=== PATIENT | female | born 1945 | race Caucasian/White ===

== ENCOUNTER 2018-04-20 18:27 | Inpatient (IN) | payer MEDICARE, MEDICAID ==
[~2018-04-20] VITALS: Ht 167.6 cm; Wt 58.2 kg
[~2018-04-20 18:27] MED LIST: ALEN70TA48 PO; ESCI10TA54 PO; HYDR25TA4 PO; PHEN100C4 PO; QUET-1 PO; RAMI5CAP PO; RISP3TAB11 PO; ZOLP10TA5 PO
[2018-04-20 19:35] LABS: BASOPHILS % (AUTO) 0.7 % (0-1); EOSINOPHILS # (AUTO) 0.1 X10'3 (0-0.9); EOSINOPHILS % (AUTO) 1.4 % (0-6); HEMATOCRIT 38.6 % (35.0-45.0); HEMOGLOBIN 13.1 g/dl (12.0-16.0); LYMPHOCYTES # (AUTO) 1.4 X10'3 (1.1-4.8); LYMPHOCYTES % (AUTO) 29.3 % (21-51); MEAN CORPUSCULAR HEMOGLOBIN 32.6 PG (27.0-31.0); MEAN CORPUSCULAR HGB CONC 33.9 % (33.0-36.5); MEAN PLATELET VOLUME 7.4 FL (7.4-10.4); MONOCYTES # (AUTO) 0.4 X10'3 (0-0.9); MONOCYTES % (AUTO) 7.4 % (2-12); NEUTROPHILS % (AUTO) 61.2 % (42-75); PLATELET COUNT 245 X10'3 (140-440); RED BLOOD COUNT 4.02 X10'6 (4.20-5.60); WHITE BLOOD COUNT 4.9 X10'3 (4.5-11.0)
[2018-04-20 19:39] LABS: CLARITY,URINE CLEAR (Clear); COLOR,URINE STRAW (Yellow); GLUCOSE, URINE NEGATIVE (Neg); KETONES,URINE NEGATIVE (Neg); LEUKOCYTE ESTERASE ,URINE NEGATIVE (Neg); NITRITES, URINE NEGATIVE (Neg); OCCULT BLOOD,URINE NEGATIVE (Neg); PH,URINE 6.5 (4.8-8.0); PROTEIN,URINE NEGATIVE (Neg); UROBILINOGEN,URINE 0.2 E.U/dL (0.2-1.0)
[2018-04-20 19:40] LABS: UA COLLECTION TYPE VOIDED
[2018-04-20 19:44] LABS: URINE AMPHETAMINE SCREEN NEGATIVE (Neg); URINE BARBITUATE SCREEN NEGATIVE (Neg); URINE BENZODIAZEPINES SCREEN NEGATIVE (Neg); URINE CANNABINOID SCREEN NEGATIVE (Neg); URINE COCAINE SCREEN NEGATIVE (Neg); URINE METHADONE SCREEN NEGATIVE (Neg); URINE OPIATE SCREEN NEGATIVE (Neg); URINE PHENCYCLIDINE SCREEN NEGATIVE (Neg)
[2018-04-20 19:49] LABS: ALANINE AMINOTRANSFERASE 43 U/L (12-78); ALBUMIN 3.6 G/DL (3.4-5.0); ALKALINE PHOSPHATASE 102 IU/L (46-116); ANION GAP 6 (8-16); ASPARTATE AMINO TRANSFERASE 24 U/L (10-37); BILIRUBIN,TOTAL 0.1 MG/DL (0.1-1.0); BLOOD UREA NITROGEN 16 MG/DL (7-18); BUN/CREATININE RATIO 19.3 (6.6-38.0); CALCIUM 8.8 MG/DL (8.5-10.1); CHLORIDE 106 MMOL/L (99-107); CREATININE 0.83 MG/DL (0.40-0.90); GLUCOSE 77 MG/DL (70-104); SODIUM 141 MMOL/L (135-145); TOTAL CARBON DIOXIDE 28.6 MMOL/L (24-32); TOTAL PROTEIN 7.1 G/DL (6.4-8.2); eGFR 67 ML/MIN
[2018-04-20 20:00] LABS: ETHANOL < 0.010 GM/DL (0.0-0.010); PHENYTOIN (DILANTIN) 15.9 UG/ML (10.0-20.0)
[2018-04-20 20:09] LABS: ACETAMINOPHEN < 2.0 UG/ML (10-30)
[2018-04-21] VITALS (17 sets, daily range): BP systolic 131–171; BP diastolic 47–79
[2018-04-21] MEDS: sodium bicarbonate (8.4%) inj. 150 MEQ in dextrose 5%-water 1,000 ML IV SCH ×2 (02:40→13:21)
[2018-04-21] MEDS ORDERED: sodium bicarbonate (8.4%) 1 mEq/ml syringe IV ONE (05:20)
[2018-04-21] MEDS: magnesium 1gm/100ml D5W IVPB 100 ML IV SCH ×2 (05:34→07:21)
[2018-04-21 05:51] LABS: BASOPHILS # (AUTO) 0.1 X10'3 (0-0.2); BASOPHILS % (AUTO) 2.4 % (0-1); EOSINOPHILS # (AUTO) 0.1 X10'3 (0-0.9); EOSINOPHILS % (AUTO) 2.3 % (0-6); HEMATOCRIT 37.9 % (35.0-45.0); HEMOGLOBIN 12.7 g/dl (12.0-16.0); LYMPHOCYTES # (AUTO) 1.3 X10'3 (1.1-4.8); LYMPHOCYTES % (AUTO) 28.8 % (21-51); MEAN CORPUSCULAR HEMOGLOBIN 32.1 PG (27.0-31.0); MEAN CORPUSCULAR HGB CONC 33.6 % (33.0-36.5); MEAN CORPUSCULAR VOLUME 95.6 FL (78-98); MEAN PLATELET VOLUME 7.5 FL (7.4-10.4); MONOCYTES # (AUTO) 0.4 X10'3 (0-0.9); MONOCYTES % (AUTO) 8.8 % (2-12); NEUTROPHILS # (AUTO) 2.6 X10'3 (1.8-7.7); NEUTROPHILS % (AUTO) 57.7 % (42-75); PLATELET COUNT 230 X10'3 (140-440); RED BLOOD COUNT 3.96 X10'6 (4.20-5.60); RED CELL DISTRIBUTION WIDTH 13.4 % (11.5-14.5); WHITE BLOOD COUNT 4.6 X10'3 (4.5-11.0)
[2018-04-21] MEDS: K, MAG and/or Phos replacement - Verify level? MC SCH ×2 (05:55→08:00)
[2018-04-21] MEDS ORDERED: morphine 4 MG/ML inj SYRINge IV PRN ×2 (05:55)
[2018-04-21] MEDS ORDERED: potassium Cl 20 mEq SR tablet PO PRN ×2 (05:55)
[2018-04-21] MEDS ORDERED: magnesium 1gm/100ml D5W IVPB 100 ML IV PRN (05:55)
[2018-04-21] MEDS ORDERED: magnesium 4gm in 100ml NS 100 ML IV PRN (05:55)
[2018-04-21] MEDS ORDERED: sodium bicarbonate inj. 133.8 MEQ in dextrose 5%-water 1,001.3333 ML IV SCH (05:55)
[2018-04-21] MEDS ORDERED: magnesium hydroxide 30ml (MOM) UD suspension PO PRN (05:55)
[2018-04-21] MEDS ORDERED: potassium Cl 40MEQ/NS 500ml 500 ML IV PRN ×2 (05:55)
[2018-04-21] MEDS ORDERED: acetaminophen 325mg tablet PO PRN ×2 (05:55)
[2018-04-21] MEDS ORDERED: magnesium Cl slow-release 64mg tablet PO PRN (05:55)
[2018-04-21 06:08] LABS: ALANINE AMINOTRANSFERASE 42 U/L (12-78); ALBUMIN 3.3 G/DL (3.4-5.0); ALKALINE PHOSPHATASE 89 IU/L (46-116); ANION GAP 9 (8-16); ASPARTATE AMINO TRANSFERASE 26 U/L (10-37); BILIRUBIN,TOTAL 0.1 MG/DL (0.1-1.0); BLOOD UREA NITROGEN 17 MG/DL (7-18); BUN/CREATININE RATIO 17.5 (6.6-38.0); CALCIUM 8.9 MG/DL (8.5-10.1); CHLORIDE 106 MMOL/L (99-107); CREATININE 0.97 MG/DL (0.40-0.90); GLUCOSE 133 MG/DL (70-104); POTASSIUM 3.6 MMOL/L (3.5-5.1); SODIUM 142 MMOL/L (135-145); TOTAL CARBON DIOXIDE 27.3 MMOL/L (24-32); TOTAL PROTEIN 6.7 G/DL (6.4-8.2); eGFR 56 ML/MIN
[2018-04-21] MEDS ORDERED: non-formulary drug (Alendronate Sodium* (Fosamax*) 1 TABLET) PO SCH (10:05)
[2018-04-21] MEDS ORDERED: non-formulary drug (Zolpidem Tartrate* (Ambien*) 1 TABLET) PO PRN (10:05)
[2018-04-21] MEDS ORDERED: zolpidem 5mg tablet PO PRN (10:10)
[2018-04-21] MEDS ORDERED: Potassium Cl inj 40 MEQ in normal saline 500ml IV soln 480 ML IV ONE (10:20)
[2018-04-21] MEDS ORDERED: pneumococcal 23-VAL P-sac vacc 25 mcg/0.5ml vial IMVAC ONE (16:25)
[2018-04-21] MEDS: phenytoin sod ER 100mg capsule PO SCH (19:56)
[2018-04-21] MEDS ORDERED: lisinopril 20mg tablet PO SCH (20:00)
[2018-04-21] MEDS ORDERED: RISPERIDONE PO SCH (21:00)
[2018-04-21] MEDS ORDERED: risperiDONE 0.5mg tablet PO SCH (21:00)
[2018-04-22] VITALS (14 sets, daily range): BP systolic 112–142; BP diastolic 51–75
[2018-04-22] MEDS: sodium bicarbonate (8.4%) inj. 150 MEQ in dextrose 5%-water 1,000 ML IV SCH ×2 (00:51→12:21)
[2018-04-22 06:01] LABS: BASOPHILS % (AUTO) 0.8 % (0-1); EOSINOPHILS # (AUTO) 0.1 X10'3 (0-0.9); EOSINOPHILS % (AUTO) 2.3 % (0-6); HEMOGLOBIN 12.3 g/dl (12.0-16.0); LYMPHOCYTES # (AUTO) 1.4 X10'3 (1.1-4.8); LYMPHOCYTES % (AUTO) 28.1 % (21-51); MEAN CORPUSCULAR HEMOGLOBIN 31.8 PG (27.0-31.0); MEAN CORPUSCULAR HGB CONC 33.4 % (33.0-36.5); MEAN CORPUSCULAR VOLUME 95.3 FL (78-98); MEAN PLATELET VOLUME 7.8 FL (7.4-10.4); MONOCYTES # (AUTO) 0.3 X10'3 (0-0.9); MONOCYTES % (AUTO) 7.1 % (2-12); NEUTROPHILS % (AUTO) 61.7 % (42-75); PLATELET COUNT 204 X10'3 (140-440); RED BLOOD COUNT 3.88 X10'6 (4.20-5.60); WHITE BLOOD COUNT 4.8 X10'3 (4.5-11.0)
[2018-04-22 06:20] LABS: ALANINE AMINOTRANSFERASE 32 U/L (12-78); ALKALINE PHOSPHATASE 88 IU/L (46-116); ANION GAP 5 (8-16); ASPARTATE AMINO TRANSFERASE 19 U/L (10-37); BILIRUBIN,TOTAL 0.3 MG/DL (0.1-1.0); BLOOD UREA NITROGEN 11 MG/DL (7-18); BUN/CREATININE RATIO 16.2 (6.6-38.0); CALCIUM 8.2 MG/DL (8.5-10.1); CHLORIDE 109 MMOL/L (99-107); CREATININE 0.68 MG/DL (0.40-0.90); GLUCOSE 99 MG/DL (70-104); PHOSPHORUS 3.3 MG/DL (2.3-4.5); SODIUM 142 MMOL/L (135-145); TOTAL CARBON DIOXIDE 27.6 MMOL/L (24-32); TOTAL PROTEIN 6.1 G/DL (6.4-8.2); eGFR 84 ML/MIN
[2018-04-22] MEDS ORDERED: lisinopril 20mg tablet PO SCH (08:00)
[2018-04-22] MEDS: K, MAG and/or Phos replacement - Verify level? MC SCH (08:00)
[2018-04-22] MEDS ORDERED: RAMIPRIL PO SCH (08:00)
[2018-04-22] MEDS: phenytoin sod ER 100mg capsule PO SCH (08:19)
[2018-04-23] MEDS ORDERED: PHEN100C12 PO (11:58)
[2018-04-23] MEDS ORDERED: PHEN100C4 PO (18:04)
== END 2018-04-22 14:49 | DRG 918 ==
LOC: ER 18:28 → ED HOLD 04-21 05:54 → ICU 2S 04-21 07:24
PROVIDERS: ADMIT Internal Medicine Critical Care Medicine; ATTEND Internal Medicine Critical Care Medicine
DX: T45.0X2A Poisoning by antiallergic and antiemetic drugs, intentional self-harm, initial encounter (principal); F20.9 Schizophrenia, unspecified; I45.81 Long QT syndrome; I10 Essential (primary) hypertension; F32.9 Major depressive disorder, single episode, unspecified; K21.9 Gastro-esophageal reflux disease without esophagitis; R56.9 Unspecified convulsions; Z79.83 Long term (current) use of bisphosphonates; Z79.899 Other long term (current) drug therapy; Y92.89 Other specified places as the place of occurrence of the external cause
CPT/HCPCS: 36415; 80053; 80185; 80305; 80320; 80329; 81003; 83735; 84100; 84443; 85025; 87070; 93005; 96365; 99285; A6449; J3480; J7030

== ENCOUNTER 2018-04-22 13:39 | Inpatient (IN) | payer MEDICARE, MEDICAID ==
[~2018-04-22] VITALS: Ht 167.6 cm; Wt 58.9 kg
[~2018-04-22 13:39] MED LIST changes: -ESCI10TA54 PO; -HYDR25TA4 PO
[2018-04-22 14:50] VITALS: BP 147/77
[2018-04-22] MEDS ORDERED: acetaminophen 325mg tablet PO PRN ×2 (16:00)
[2018-04-22] MEDS ORDERED: mag hydrox/Alum hydrox/simeth 30ml oral suspension PO PRN (16:00)
[2018-04-22] MEDS ORDERED: magnesium hydroxide 30ml (MOM) UD suspension PO PRN (16:00)
[2018-04-22 16:38] LABS: CHOL/HDL RATIO 2.1 (0.00-4.99); CHOLESTEROL 214 MG/DL (0-200); HDL CHOLESTEROL 103 MG/DL (35-60); LDL CHOLESTEROL 89 MG/DL (50-100); TRIGLYCERIDES 72 MG/DL (20-135)
[2018-04-22 19:42] VITALS: BP 122/71
[2018-04-22] MEDS: lisinopril 20mg tablet PO SCH (20:38)
[2018-04-22] MEDS: zolpidem 5mg tablet PO PRN (20:39)
[2018-04-22] MEDS: QUETIAPINE 150 MG TAB.SR.24H PO SCH (20:39)
[2018-04-23 08:00] VITALS: BP 113/49
[2018-04-23] MEDS ORDERED: lisinopril 20mg tablet PO SCH (08:00)
[2018-04-23] MEDS: [UNRECOGNIZED DRUG - REMARK] PO NR (10:00)
[2018-04-23] MEDS ORDERED: PHEN100C12 PO (11:58)
[2018-04-23] MEDS ORDERED: PHEN100C4 PO (18:04)
[2018-04-23 20:04] VITALS: BP 120/69
[2018-04-23] MEDS: QUETIAPINE 150 MG TAB.SR.24H PO SCH (20:56)
[2018-04-23] MEDS: lisinopril 20mg tablet PO SCH (20:56)
[2018-04-23] MEDS: zolpidem 5mg tablet PO PRN (20:56)
[2018-04-23] MEDS: phenytoin sod ER 100mg capsule PO SCH (21:02)
[2018-04-24] MEDS: phenytoin sod ER 100mg capsule PO SCH ×3 (07:53→21:00)
[2018-04-24 08:00] VITALS: BP 118/63
[2018-04-24] MEDS: [UNRECOGNIZED DRUG - REMARK] PO NR (10:35)
[2018-04-24 19:00] VITALS: BP 119/64
[2018-04-24] MEDS: lisinopril 20mg tablet PO SCH (21:00)
[2018-04-24] MEDS: QUETIAPINE 150 MG TAB.SR.24H PO SCH (21:00)
[2018-04-24] MEDS: zolpidem 5mg tablet PO PRN (21:05)
[2018-04-25 08:00] VITALS: BP 143/69
[2018-04-25] MEDS: phenytoin sod ER 100mg capsule PO SCH ×3 (08:26→20:47)
[2018-04-25] MEDS: [UNRECOGNIZED DRUG - REMARK] PO NR (10:00)
[2018-04-25 19:00] VITALS: BP 144/72
[2018-04-25] MEDS: QUETIAPINE 200 MG TAB.SR.24H PO SCH (20:47)
[2018-04-25] MEDS: zolpidem 5mg tablet PO PRN (20:48)
[2018-04-25] MEDS: lisinopril 20mg tablet PO SCH (20:48)
[2018-04-26 08:00] VITALS: BP 151/74
[2018-04-26] MEDS: phenytoin sod ER 100mg capsule PO SCH ×3 (08:14→21:07)
[2018-04-26] MEDS: [UNRECOGNIZED DRUG - REMARK] PO NR (10:25)
[2018-04-26] MEDS ORDERED: QUET400T54 PO (12:25)
[2018-04-26] MEDS ORDERED: PHEN100C12 PO (12:25)
[2018-04-26] MEDS ORDERED: ZOLP10TA PO (12:25)
[2018-04-26] MEDS ORDERED: ALEN70TA48 PO (12:25)
[2018-04-26] MEDS ORDERED: LISI-600 PO (12:25)
[2018-04-26 19:00] VITALS: BP 134/69
[2018-04-26] MEDS: QUETIAPINE 200 MG TAB.SR.24H PO SCH (21:07)
[2018-04-26] MEDS: lisinopril 20mg tablet PO SCH (21:08)
[2018-04-26] MEDS: zolpidem 5mg tablet PO PRN (21:08)
[2018-04-27 07:57] VITALS: BP 122/69
[2018-04-27] MEDS: phenytoin sod ER 100mg capsule PO SCH ×2 (08:33→13:21)
[2018-04-27] MEDS: [UNRECOGNIZED DRUG - REMARK] PO NR (10:00)
== END 2018-04-27 14:37 | disposition home or self-care (01) | DRG 885 ==
LOC: ADULT MH 13:39
PROVIDERS: ADMIT Psychiatry & Neurology Psychiatry; ATTEND Psychiatry & Neurology Psychiatry
DX: F20.0 Paranoid schizophrenia (principal); R45.851 Suicidal ideations; I10 Essential (primary) hypertension; E78.5 Hyperlipidemia, unspecified; E78.00 Pure hypercholesterolemia, unspecified; F10.21 Alcohol dependence, in remission; F32.9 Major depressive disorder, single episode, unspecified; G40.909 Epilepsy, unspecified, not intractable, without status epilepticus; I45.81 Long QT syndrome; T45.0X2D Poisoning by antiallergic and antiemetic drugs, intentional self-harm, subsequent encounter; Z79.83 Long term (current) use of bisphosphonates; Z79.899 Other long term (current) drug therapy; Z87.891 Personal history of nicotine dependence; Z82.5 Family history of asthma and other chronic lower respiratory diseases; Y92.89 Other specified places as the place of occurrence of the external cause
CPT/HCPCS: 36415; 80061; 83036; 87070

== ENCOUNTER 2018-06-18 11:47 | Inpatient (IN) | payer MEDICARE, MEDICAID ==
[~2018-06-18] VITALS: Ht 167.6 cm; Wt 54.0 kg
[~2018-06-18 11:47] MED LIST changes: +LISI-600 PO; +PHEN100C12 PO; -PHEN100C4 PO; -QUET-1 PO; +QUET400T54 PO; -RAMI5CAP PO; -RISP3TAB11 PO; +ZOLP10TA PO; -ZOLP10TA5 PO
[2018-06-18] MEDS ORDERED: ondansetron 4mg rapidly disintigrating tab PO ONE (11:55)
[2018-06-18 12:17] LABS: CLARITY,URINE CLEAR (Clear); COLOR,URINE YELLOW (Yellow); GLUCOSE, URINE NEGATIVE (Neg); KETONES,URINE TRACE mg/dl (Neg); LEUKOCYTE ESTERASE ,URINE NEGATIVE (Neg); NITRITES, URINE NEGATIVE (Neg); OCCULT BLOOD,URINE TRACE-LYSED (Neg); PROTEIN,URINE NEGATIVE (Neg); UROBILINOGEN,URINE 0.2 E.U/dL (0.2-1.0)
[2018-06-18 12:18] LABS: EOSINOPHILS # (AUTO) 0.1 X10'3 (0-0.9); EOSINOPHILS % (AUTO) 1.1 % (0-6); HEMATOCRIT 37.1 % (35.0-45.0); HEMOGLOBIN 12.7 g/dl (12.0-16.0); LYMPHOCYTES # (AUTO) 0.8 X10'3 (1.1-4.8); LYMPHOCYTES % (AUTO) 17.3 % (21-51); MEAN CORPUSCULAR HGB CONC 34.2 % (33.0-36.5); MEAN CORPUSCULAR VOLUME 93.6 FL (78-98); MEAN PLATELET VOLUME 7.5 FL (7.4-10.4); MONOCYTES # (AUTO) 0.2 X10'3 (0-0.9); MONOCYTES % (AUTO) 4.7 % (2-12); NEUTROPHILS # (AUTO) 3.3 X10'3 (1.8-7.7); NEUTROPHILS % (AUTO) 75.9 % (42-75); PLATELET COUNT 246 X10'3 (140-440); RED BLOOD COUNT 3.96 X10'6 (4.20-5.60); RED CELL DISTRIBUTION WIDTH 13.6 % (11.5-14.5); WHITE BLOOD COUNT 4.4 X10'3 (4.5-11.0)
[2018-06-18] MEDS ORDERED: POLY17PO10 PO (12:20)
[2018-06-18] MEDS ORDERED: ondansetron/PF 4mg/2ml inj IV ONE (12:25)
[2018-06-18] MEDS ORDERED: normal saline 1000ML IV soln IVB ONE (12:25)
[2018-06-18 12:30] LABS: ALANINE AMINOTRANSFERASE 34 U/L (12-78); ALBUMIN 3.6 G/DL (3.4-5.0); ALKALINE PHOSPHATASE 81 IU/L (46-116); ANION GAP 12 (8-16); ASPARTATE AMINO TRANSFERASE 23 U/L (10-37); BILIRUBIN,TOTAL 0.3 MG/DL (0.1-1.0); BLOOD UREA NITROGEN 20 MG/DL (7-18); CALCIUM 8.9 MG/DL (8.5-10.1); CHLORIDE 106 MMOL/L (99-107); CREATININE 0.91 MG/DL (0.40-0.90); GLUCOSE 87 MG/DL (70-104); POTASSIUM 3.7 MMOL/L (3.5-5.1); SODIUM 142 MMOL/L (135-145); TOTAL CARBON DIOXIDE 24.2 MMOL/L (24-32); TOTAL PROTEIN 7.2 G/DL (6.4-8.2); eGFR 60 ML/MIN
[2018-06-18 12:38] LABS: UA COLLECTION TYPE CLN CATCH MIDSTREAM
[2018-06-18 12:48] LABS: WBC,URINE 0-4 /HPF (0-4)
[2018-06-18 12:49] LABS: BACTERIA,URINE FEW /HPF (Neg); MUCUS STRANDS MODERATE /LPF (Neg); RBC,URINE 0-2 /HPF (0-2); SQUAMOUS EPITHELIAL CELL,UR MODERATE /LPF (FEW)
[2018-06-18] MEDS ORDERED: potassium Cl 40MEQ/NS 500ml 500 ML IV PRN ×2 (14:30)
[2018-06-18] MEDS ORDERED: magnesium Cl slow-release 64mg tablet PO PRN (14:30)
[2018-06-18] MEDS ORDERED: HYDROcodone/acetaminophen 10/325mg tab PO PRN (14:30)
[2018-06-18] MEDS ORDERED: HYDROcodone/acetaminophen 5mg/325mg tablet PO PRN (14:30)
[2018-06-18] MEDS ORDERED: acetaminophen 325mg tablet PO PRN ×2 (14:30)
[2018-06-18] MEDS ORDERED: acetaminophen 650mg rectal suppository RC PRN (14:30)
[2018-06-18] MEDS ORDERED: ondansetron/PF 4mg/2ml inj IV PRN (14:30)
[2018-06-18] MEDS ORDERED: mag hydrox/Alum hydrox/simeth 30ml oral suspension PO PRN (14:30)
[2018-06-18] MEDS ORDERED: bisacodyl 10mg suppository rectal RC PRN (14:30)
[2018-06-18] MEDS ORDERED: diphenhydrAMINE 25mg capsule PO PRN (14:30)
[2018-06-18] MEDS ORDERED: non-formulary drug (Alendronate Sodium* (Fosamax*) 1 TABLET) PO SCH (14:30)
[2018-06-18] MEDS ORDERED: magnesium 4gm in 100ml NS 100 ML IV PRN (14:30)
[2018-06-18] MEDS ORDERED: potassium Cl 20 mEq SR tablet PO PRN ×2 (14:30)
[2018-06-18] MEDS ORDERED: diphenhydrAMINE 50 mg/ml inj IV PRN (14:30)
[2018-06-18] MEDS ORDERED: magnesium hydroxide 30ml (MOM) UD suspension PO PRN (14:30)
[2018-06-18] MEDS ORDERED: magnesium 1gm/100ml D5W IVPB 100 ML IV PRN (14:30)
[2018-06-18] MEDS ORDERED: morphine 2 MG/ML inj. syringe IV PRN ×2 (14:30)
[2018-06-18] MEDS: K and/or MAG REPLACEMENT MC SCH (15:20)
[2018-06-18 15:57] LABS: PHENYTOIN (DILANTIN) 0.5 UG/ML (10.0-20.0)
[2018-06-18] MEDS ORDERED: pneumococcal 23-VAL P-sac vacc 25 mcg/0.5ml vial IMVAC ONE (16:00)
[2018-06-18 17:06] VITALS: BP 150/77
[2018-06-18] MEDS: normal saline 1000ml 1,000 ML IV SCH (18:24)
[2018-06-18 20:00] VITALS: BP 163/70
[2018-06-18] MEDS: phenytoin sod ER 100mg capsule PO SCH (20:43)
[2018-06-18] MEDS: heparin, porcine 5000 units/ml vial SQ SCH (20:44)
[2018-06-18] MEDS: quetiapine 100mg tablet PO SCH (20:44)
[2018-06-18] MEDS: lisinopril 20mg tablet PO SCH (20:44)
[2018-06-18] MEDS: diatr meglu/diatrizoate 30ml oral sol.-(3 dose) bottle PO SCH (20:44)
[2018-06-18] MEDS: zolpidem 5mg tablet PO PRN (20:49)
[2018-06-18] MEDS ORDERED: temazepam 15mg capsule PO PRN (21:00)
[2018-06-18 23:51] VITALS: BP 136/69
[2018-06-19] MEDS: normal saline 1000ml 1,000 ML IV SCH ×3 (04:24→16:35)
[2018-06-19 04:42] LABS: BASOPHILS % (AUTO) 1.2 % (0-1); EOSINOPHILS # (AUTO) 0.1 X10'3 (0-0.9); EOSINOPHILS % (AUTO) 2.2 % (0-6); HEMATOCRIT 32.7 % (35.0-45.0); HEMOGLOBIN 10.9 g/dl (12.0-16.0); LYMPHOCYTES # (AUTO) 1.2 X10'3 (1.1-4.8); LYMPHOCYTES % (AUTO) 33.9 % (21-51); MEAN CORPUSCULAR HEMOGLOBIN 31.5 PG (27.0-31.0); MEAN CORPUSCULAR HGB CONC 33.2 % (33.0-36.5); MONOCYTES # (AUTO) 0.3 X10'3 (0-0.9); MONOCYTES % (AUTO) 7.9 % (2-12); NEUTROPHILS # (AUTO) 1.9 X10'3 (1.8-7.7); NEUTROPHILS % (AUTO) 54.8 % (42-75); PLATELET COUNT 198 X10'3 (140-440); RED BLOOD COUNT 3.45 X10'6 (4.20-5.60); RED CELL DISTRIBUTION WIDTH 13.7 % (11.5-14.5); WHITE BLOOD COUNT 3.5 X10'3 (4.5-11.0)
[2018-06-19 05:03] LABS: ALANINE AMINOTRANSFERASE 24 U/L (12-78); ALBUMIN 2.8 G/DL (3.4-5.0); ALKALINE PHOSPHATASE 65 IU/L (46-116); ANION GAP 9 (8-16); ASPARTATE AMINO TRANSFERASE 21 U/L (10-37); BILIRUBIN,TOTAL 0.4 MG/DL (0.1-1.0); BLOOD UREA NITROGEN 15 MG/DL (7-18); BUN/CREATININE RATIO 21.1 (6.6-38.0); CALCIUM 8.2 MG/DL (8.5-10.1); CHLORIDE 112 MMOL/L (99-107); CREATININE 0.71 MG/DL (0.40-0.90); GLUCOSE 79 MG/DL (70-104); PHOSPHORUS 3.8 MG/DL (2.3-4.5); POTASSIUM 3.8 MMOL/L (3.5-5.1); SODIUM 146 MMOL/L (135-145); TOTAL CARBON DIOXIDE 24.8 MMOL/L (24-32); TOTAL PROTEIN 5.7 G/DL (6.4-8.2); eGFR 80 ML/MIN
[2018-06-19 07:10] VITALS: BP 116/53
[2018-06-19] MEDS: pantoprazole 40 MG vial IV SCH (07:30)
[2018-06-19] MEDS: diatr meglu/diatrizoate 30ml oral sol.-(3 dose) bottle PO SCH ×3 (07:45→21:11)
[2018-06-19] MEDS: heparin, porcine 5000 units/ml vial SQ SCH ×2 (07:46→21:12)
[2018-06-19] MEDS: phenytoin sod ER 100mg capsule PO SCH ×3 (07:46→21:12)
[2018-06-19] MEDS: K and/or MAG REPLACEMENT MC SCH (07:53)
[2018-06-19] MEDS ORDERED: iohexol 300mg/ml 100ml inj. ONE (08:56)
[2018-06-19 11:31] VITALS: BP 142/62
[2018-06-19 13:00] VITALS: BP 158/53
[2018-06-19 18:00] VITALS: BP 154/76
[2018-06-19] MEDS: quetiapine 100mg tablet PO SCH (21:13)
[2018-06-19] MEDS: lisinopril 20mg tablet PO SCH (21:13)
[2018-06-19] MEDS: zolpidem 5mg tablet PO PRN (21:24)
[2018-06-20] VITALS: BP 108/43
[2018-06-20] MEDS: normal saline 1000ml 1,000 ML IV SCH ×2 (00:59→10:01)
[2018-06-20 06:06] LABS: ALANINE AMINOTRANSFERASE 27 U/L (12-78); ALBUMIN 2.8 G/DL (3.4-5.0); ALKALINE PHOSPHATASE 68 IU/L (46-116); ANION GAP 10 (8-16); ASPARTATE AMINO TRANSFERASE 22 U/L (10-37); BILIRUBIN,TOTAL 0.3 MG/DL (0.1-1.0); BLOOD UREA NITROGEN 8 MG/DL (7-18); BUN/CREATININE RATIO 13.6 (6.6-38.0); CHLORIDE 111 MMOL/L (99-107); CREATININE 0.59 MG/DL (0.40-0.90); GLUCOSE 80 MG/DL (70-104); MAGNESIUM 1.9 MG/DL (1.5-2.4); PHOSPHORUS 3.1 MG/DL (2.3-4.5); POTASSIUM 3.8 MMOL/L (3.5-5.1); SODIUM 146 MMOL/L (135-145); TOTAL CARBON DIOXIDE 25.2 MMOL/L (24-32); TOTAL PROTEIN 5.7 G/DL (6.4-8.2); eGFR > 90 ML/MIN
[2018-06-20 07:00] VITALS: BP 165/76
[2018-06-20] MEDS: K and/or MAG REPLACEMENT MC SCH (07:27)
[2018-06-20] MEDS: phenytoin sod ER 100mg capsule PO SCH ×2 (07:29→12:55)
[2018-06-20] MEDS: diatr meglu/diatrizoate 30ml oral sol.-(3 dose) bottle PO SCH ×2 (07:31→10:00)
[2018-06-20] MEDS: pantoprazole 40 MG vial IV SCH (07:31)
[2018-06-20] MEDS: heparin, porcine 5000 units/ml vial SQ SCH (07:37)
[2018-06-20 08:18] LABS: BASOPHILS % (AUTO) 1.4 % (0-1); EOSINOPHILS # (AUTO) 0.1 X10'3 (0-0.9); EOSINOPHILS % (AUTO) 2.6 % (0-6); HEMATOCRIT 30.8 % (35.0-45.0); HEMOGLOBIN 10.6 g/dl (12.0-16.0); LYMPHOCYTES % (AUTO) 33.7 % (21-51); MEAN CORPUSCULAR HEMOGLOBIN 32.7 PG (27.0-31.0); MEAN CORPUSCULAR HGB CONC 34.6 % (33.0-36.5); MEAN CORPUSCULAR VOLUME 94.6 FL (78-98); MEAN PLATELET VOLUME 8.6 FL (7.4-10.4); MONOCYTES # (AUTO) 0.2 X10'3 (0-0.9); MONOCYTES % (AUTO) 7.9 % (2-12); NEUTROPHILS # (AUTO) 1.7 X10'3 (1.8-7.7); NEUTROPHILS % (AUTO) 54.4 % (42-75); PLATELET COUNT 173 X10'3 (140-440); RED BLOOD COUNT 3.25 X10'6 (4.20-5.60); RED CELL DISTRIBUTION WIDTH 12.6 % (11.5-14.5); WHITE BLOOD COUNT 3.1 X10'3 (4.5-11.0)
[2018-06-20 11:42] VITALS: BP 152/63
[2018-06-20] MEDS ORDERED: PANT-47 PO (11:56)
== END 2018-06-20 16:17 | disposition home or self-care (01) | DRG 392 ==
LOC: ER 11:47 → ED HOLD 14:30 → SUR 3N 16:16
PROVIDERS: ADMIT Family Medicine; ATTEND Family Medicine
DX: R10.9 Unspecified abdominal pain (principal); K44.9 Diaphragmatic hernia without obstruction or gangrene; F20.9 Schizophrenia, unspecified; E78.5 Hyperlipidemia, unspecified; G40.909 Epilepsy, unspecified, not intractable, without status epilepticus; I10 Essential (primary) hypertension; K21.9 Gastro-esophageal reflux disease without esophagitis; Z90.49 Acquired absence of other specified parts of digestive tract; Z79.899 Other long term (current) drug therapy; Z87.891 Personal history of nicotine dependence; Z83.6 Family history of other diseases of the respiratory system; Z82.49 Family history of ischemic heart disease and other diseases of the circulatory system
CPT/HCPCS: 36415; 74018; 74176; 74177; 80053; 80185; 81001; 83735; 84100; 85025; 87070; 90732; 99285; C9113; J1644; J7030; Q9963; Q9967

== ENCOUNTER 2018-09-04 12:17 | Emergency (ER) | payer MEDICARE, MEDICAID ==
[~2018-09-04] VITALS: Ht 167.6 cm; Wt 52.7 kg
[~2018-09-04 12:17] MED LIST changes: +PANT-47 PO
[2018-09-04 13:32] LABS: BASOPHILS # (AUTO) 0.1 X10'3 (0-0.2); EOSINOPHILS # (AUTO) 0.1 X10'3 (0-0.9); EOSINOPHILS % (AUTO) 1.3 % (0-6); HEMATOCRIT 35.2 % (35.0-45.0); HEMOGLOBIN 11.7 g/dl (12.0-16.0); LYMPHOCYTES # (AUTO) 0.3 X10'3 (1.1-4.8); LYMPHOCYTES % (AUTO) 4.4 % (21-51); MEAN CORPUSCULAR HGB CONC 33.3 % (33.0-36.5); MEAN CORPUSCULAR VOLUME 96.1 FL (78-98); MEAN PLATELET VOLUME 7.1 FL (7.4-10.4); MONOCYTES # (AUTO) 0.2 X10'3 (0-0.9); MONOCYTES % (AUTO) 3.1 % (2-12); NEUTROPHILS # (AUTO) 5.2 X10'3 (1.8-7.7); NEUTROPHILS % (AUTO) 90.2 % (42-75); PLATELET COUNT 263 X10'3 (140-440); RED BLOOD COUNT 3.67 X10'6 (4.20-5.60); RED CELL DISTRIBUTION WIDTH 15.2 % (11.5-14.5); WHITE BLOOD COUNT 5.8 X10'3 (4.5-11.0)
[2018-09-04 13:40] LABS: ALANINE AMINOTRANSFERASE 26 U/L (12-78); ALBUMIN 3.5 G/DL (3.4-5.0); ALBUMIN/GLOBULIN RATIO 1.1 (1.1-1.5); ALKALINE PHOSPHATASE 94 IU/L (46-116); ANION GAP 14 (8-16); ASPARTATE AMINO TRANSFERASE 21 U/L (10-37); BILIRUBIN,TOTAL 0.3 MG/DL (0.1-1.0); BLOOD UREA NITROGEN 18 MG/DL (7-18); BUN/CREATININE RATIO 25.4 (6.6-38.0); CALCIUM 8.7 MG/DL (8.5-10.1); CHLORIDE 104 MMOL/L (99-107); CREATININE 0.71 MG/DL (0.40-0.90); GLUCOSE 101 MG/DL (70-104); POTASSIUM 3.9 MMOL/L (3.5-5.1); SODIUM 140 MMOL/L (135-145); TOTAL PROTEIN 6.7 G/DL (6.4-8.2); eGFR 80 ML/MIN
[2018-09-04 13:49] LABS: ETHANOL < 0.010 GM/DL (0.0-0.010)
[2018-09-04 13:52] LABS: ACETAMINOPHEN < 2.0 UG/ML (10-30)
[2018-09-04 15:22] LABS: PHENYTOIN (DILANTIN) 8.4 UG/ML (10.0-20.0)
[2018-09-04 16:21] LABS: CLARITY,URINE CLEAR (Clear); COLOR,URINE YELLOW (Yellow); GLUCOSE, URINE NEGATIVE (Neg); KETONES,URINE NEGATIVE (Neg); LEUKOCYTE ESTERASE ,URINE NEGATIVE (Neg); NITRITES, URINE NEGATIVE (Neg); OCCULT BLOOD,URINE NEGATIVE (Neg); PROTEIN,URINE NEGATIVE (Neg); UROBILINOGEN,URINE 0.2 E.U/dL (0.2-1.0)
[2018-09-04 16:22] LABS: UA COLLECTION TYPE CLN CATCH MIDSTREAM
[2018-09-04 16:42] LABS: URINE AMPHETAMINE SCREEN NEGATIVE (Neg); URINE BARBITUATE SCREEN NEGATIVE (Neg); URINE BENZODIAZEPINES SCREEN NEGATIVE (Neg); URINE CANNABINOID SCREEN NEGATIVE (Neg); URINE COCAINE SCREEN NEGATIVE (Neg); URINE METHADONE SCREEN NEGATIVE (Neg); URINE OPIATE SCREEN NEGATIVE (Neg); URINE PHENCYCLIDINE SCREEN NEGATIVE (Neg)
[2018-09-04] MEDS ORDERED: QUET-1 PO (23:29)
[2018-09-04] MEDS ORDERED: LISI-600 PO (23:29)
[2018-09-04] MEDS ORDERED: ALEN70TA48 PO (23:29)
[2018-09-04] MEDS ORDERED: PHEN100C12 PO (23:29)
[2018-09-04] MEDS ORDERED: ZOLP5TAB8 PO (23:29)
[2018-09-05] MEDS ORDERED: zolpidem 5mg tablet PO PRN (01:00)
[2018-09-05] MEDS: phenytoin sod ER 100mg capsule PO SCH ×3 (08:35→20:33)
[2018-09-05] MEDS: lisinopril 20mg tablet PO SCH (08:36)
[2018-09-05] MEDS ORDERED: OLAN5TAB5 PO (09:30)
[2018-09-05] MEDS: OLANZapine 2.5MG tablet PO SCH ×2 (20:33→21:00)
[2018-09-05] MEDS ORDERED: quetiapine 100mg tablet PO SCH (21:00)
[2018-09-06] MEDS: phenytoin sod ER 100mg capsule PO SCH ×2 (07:06→13:40)
[2018-09-06] MEDS: lisinopril 20mg tablet PO SCH (07:06)
[2018-09-06 16:56] VITALS: BP 110/60
== END 2018-09-06 17:02 | disposition home or self-care (01) ==
LOC: ER 12:17
DX: T43.591A Poisoning by other antipsychotics and neuroleptics, accidental (unintentional), initial encounter (principal); R44.0 Auditory hallucinations; I10 Essential (primary) hypertension; K21.9 Gastro-esophageal reflux disease without esophagitis; Z98.890 Other specified postprocedural states; Z79.899 Other long term (current) drug therapy; Y92.89 Other specified places as the place of occurrence of the external cause
CPT/HCPCS: 36415; 80053; 80185; 80305; 80320; 80329; 81003; 84443; 85025; 93005; 99285

== ENCOUNTER 2018-09-06 15:50 | Inpatient (IN) | payer MEDICARE, MEDICAID | END 2018-10-03 13:10 | disposition still patient (30) | LOC: ADULT MH 15:50 | DX: F20.9 Schizophrenia, unspecified (principal); F41.9 Anxiety disorder, unspecified; I10 Essential (primary) hypertension ==

== ENCOUNTER 2018-11-13 12:29 | Emergency (ER) | payer MEDICARE, MEDICAID ==
[~2018-11-13] VITALS: Ht 167.6 cm; Wt 58.2 kg
[~2018-11-13 12:29] MED LIST changes: -ALEN70TA48 PO; +ALEN70TA60 PO; +COL100C PO; +MIRT15TA8 PO; -PANT-47 PO; +PANT40TA4 PO; +QUET400T12 PO; -QUET400T54 PO; +TEMA15CA PO; -ZOLP10TA PO
--- NOTE | 2018-11-13 12:43 | NUR ---
TC TO REPORT INCIDENT TO POISON CONTROL.
--- NOTE | 2018-11-13 12:54 | NUR ---
ADVICE FROM POISON CONTROL IS TO [facility] [employer] EDUCATOR DEPRESSION, DROWSINESS, EKG CHANGES, SUPPORTIVE TREATMENT AND REPLACING ELECTROLYTES NEEDED.
[2018-11-13 13:11] LABS: BASOPHILS # (AUTO) 0.1 X10'3 (0-0.2); BASOPHILS % (AUTO) 1.4 % (0-1); EOSINOPHILS # (AUTO) 0.1 X10'3 (0-0.9); EOSINOPHILS % (AUTO) 1.9 % (0-6); HEMATOCRIT 34.4 % (35.0-45.0); HEMOGLOBIN 11.5 g/dl (12.0-16.0); LYMPHOCYTES # (AUTO) 0.7 X10'3 (1.1-4.8); LYMPHOCYTES % (AUTO) 17.1 % (21-51); MEAN CORPUSCULAR HGB CONC 33.3 g/dL (33.0-36.5); MEAN CORPUSCULAR VOLUME 93.1 FL (78-98); MEAN PLATELET VOLUME 7.1 FL (7.4-10.4); MONOCYTES # (AUTO) 0.2 X10'3 (0-0.9); MONOCYTES % (AUTO) 5.7 % (2-12); NEUTROPHILS # (AUTO) 2.9 X10'3 (1.8-7.7); NEUTROPHILS % (AUTO) 73.9 % (42-75); PLATELET COUNT 248 X10'3 (140-440); RED CELL DISTRIBUTION WIDTH 13.3 % (11.5-14.5); WHITE BLOOD COUNT 3.9 X10'3 (4.5-11.0)
[2018-11-13 13:22] LABS: ALANINE AMINOTRANSFERASE 27 U/L (12-78); ALBUMIN 3.1 G/DL (3.4-5.0); ALBUMIN/GLOBULIN RATIO 0.9 (1.1-1.5); ALKALINE PHOSPHATASE 109 IU/L (46-116); ANION GAP 9 (8-16); ASPARTATE AMINO TRANSFERASE 23 U/L (10-37); BILIRUBIN,TOTAL 0.2 MG/DL (0.1-1.0); BLOOD UREA NITROGEN 21 MG/DL (7-18); BUN/CREATININE RATIO 27.3 (6.6-38.0); CALCIUM 8.6 MG/DL (8.5-10.1); CHLORIDE 105 MMOL/L (99-107); CREATININE 0.77 MG/DL (0.40-0.90); GLUCOSE 165 MG/DL (70-104); POTASSIUM 3.8 MMOL/L (3.5-5.1); SODIUM 140 MMOL/L (135-145); TOTAL CARBON DIOXIDE 25.7 MMOL/L (24-32); TOTAL PROTEIN 6.6 G/DL (6.4-8.2); eGFR 73 ML/MIN
[2018-11-13 13:44] LABS: CLARITY,URINE CLEAR (Clear); COLOR,URINE YELLOW (Yellow); GLUCOSE, URINE NEGATIVE (Neg); KETONES,URINE NEGATIVE (Neg); LEUKOCYTE ESTERASE ,URINE NEGATIVE (Neg); NITRITES, URINE NEGATIVE (Neg); OCCULT BLOOD,URINE NEGATIVE (Neg); PROTEIN,URINE NEGATIVE (Neg); UROBILINOGEN,URINE 0.2 E.U/dL (0.2-1.0)
[2018-11-13 13:46] LABS: UA COLLECTION TYPE CLN CATCH MIDSTREAM
[2018-11-13 13:53] LABS: ETHANOL < 0.010 GM/DL (0.0-0.010)
[2018-11-13 13:55] LABS: URINE AMPHETAMINE SCREEN NEGATIVE (Neg); URINE BARBITUATE SCREEN NEGATIVE (Neg); URINE BENZODIAZEPINES SCREEN NEGATIVE (Neg); URINE CANNABINOID SCREEN NEGATIVE (Neg); URINE COCAINE SCREEN NEGATIVE (Neg); URINE METHADONE SCREEN NEGATIVE (Neg); URINE OPIATE SCREEN NEGATIVE (Neg); URINE PHENCYCLIDINE SCREEN NEGATIVE (Neg)
[2018-11-13 13:56] LABS: ACETAMINOPHEN < 2.0 UG/ML (10-30)
--- NOTE | 2018-11-13 15:47 | NUR ---
tc from poison control. condition report given.
[2018-11-13] MEDS ORDERED: MIRT15TA PO (18:22)
[2018-11-13] MEDS ORDERED: QUET400T12 PO (18:22)
[2018-11-13] MEDS ORDERED: QUET50TA22 PO (18:22)
[2018-11-13] MEDS ORDERED: TEMA15CA5 PO (18:22)
[2018-11-13] MEDS ORDERED: LISI-600 PO (18:22)
--- NOTE | 2018-11-13 22:46 | NUR ---
SPOKE WITH TELE PSYCH ABOUT PTS REASON FOR BEING IN ER. TELE PSYCH DR TO INITIATE CONSULT. E
--- NOTE | 2018-11-13 23:04 | NUR ---
TELEPSYCH IS GOING TO FAX REPORT RECOMMENDING INPATIENT CARE FOR PT
[2018-11-14 07:32] VITALS: BP 143/97
--- NOTE | 2018-11-14 09:34 | NUR ---
TAMMY FROM [facility] CALLED AND REPORTED THAT PT LEMUS BEEN ACCEPTED BY DR RODRIGUEZ.
[2018-11-14] MEDS ORDERED: PHEN100C12 PO (11:22)
[2018-11-14] MEDS ORDERED: ZOLP5TAB2 PO (11:22)
[2018-11-14] MEDS ORDERED: OLAN5TAB5 PO (11:22)
== END 2018-11-14 10:01 | disposition home or self-care (01) ==
LOC: ER 12:32
DX: F20.9 Schizophrenia, unspecified (principal); R45.851 Suicidal ideations; I10 Essential (primary) hypertension; K21.9 Gastro-esophageal reflux disease without esophagitis; Z98.890 Other specified postprocedural states; Z79.899 Other long term (current) drug therapy
CPT/HCPCS: 36415; 80053; 80305; 80320; 80329; 81003; 84443; 85025; 93005; 99284

== ENCOUNTER 2018-11-14 08:00 | Inpatient (IN) | payer MEDICARE, MEDICAID ==
[~2018-11-14] VITALS: Ht 167.6 cm; Wt 57.9 kg
[~2018-11-14 08:00] MED LIST changes: -ALEN70TA60 PO; -COL100C PO; +MIRT15TA PO; -MIRT15TA8 PO; -PANT40TA4 PO; -PHEN100C12 PO; +QUET50TA22 PO; -TEMA15CA PO; +TEMA15CA5 PO
[2018-11-14] MEDS ORDERED: OLAN5TAB5 PO (11:22)
[2018-11-14] MEDS ORDERED: PHEN100C12 PO (11:22)
[2018-11-14] MEDS ORDERED: ZOLP5TAB2 PO (11:22)
[2018-11-14] MEDS ORDERED: tuberculin, purif. prot. deriv. 5 units/0.1ml ID ONE (11:40)
[2018-11-14] MEDS ORDERED: mag hydrox/Alum hydrox/simeth 30ml oral suspension PO PRN (11:40)
[2018-11-14] MEDS ORDERED: acetaminophen 325mg tablet PO PRN ×2 (11:40)
[2018-11-14] MEDS ORDERED: zolpidem 5mg tablet PO PRN ×2 (12:10→12:15)
[2018-11-14] MEDS ORDERED: OLANZapine 5mg rapidly disint. tablet PO SCH (12:10)
[2018-11-14] MEDS: lisinopril 20mg tablet PO SCH (12:28)
[2018-11-14] MEDS: phenytoin sod ER 100mg capsule PO SCH ×2 (12:30→22:02)
[2018-11-14] MEDS ORDERED: phenytoin sod ER 100mg capsule PO SCH (13:00)
[2018-11-14] MEDS: magnesium hydroxide 30ml (MOM) UD suspension PO PRN (14:13)
--- NOTE | 2018-11-14 15:49 | NUR ---
Admit note: Pt admitted for Depression and suicidal ideation by Dr Farah at 10:15. Pt made an attempt to end her life taking her prescribed medications Quetiapine and Remeron. This is pts fourth suicide attempt since Jun 2018 all being overdoses. Pt has been oriented to the unit. Pts regular Psychiatrist is Dr Farah. Pts clothing inventoried. Pt advised of her 5150 starting now she has arrived to unit.
--- NOTE | 2018-11-14 17:29 | NUR ---
Nursing Progress Note: Marie Suazo Legal hold: 5150 Client on involuntary status for GD/DTS Report received from nurse with use of SBAR: Malena KHAN (ER) Why are they here: Pt. is an involuntary admission after being brought to the the ER on the evening of 11/13 for SI with plan to overdose. Pt. has a hx of 4 previous suicide attempts by OD. Assessment Pt. arrived to floor at 10:15am on a 5150 for Suicidal ideation with plan to OD on medications and auditory hallucinations. Pt. reports she has been hearing her voices since she was 27. pt. was calm and cooperative but made clear she wanted to be discharged by Sunday because of a banking appointment with [employer]. Pt. states that "some people are being blamed on me. the voices telling me that". Pt. reporting hearing voices that tell repeatedly say, " Jazlyn".Pt. states that she has been hearing the voices for so long that no longer recongnizes them. Pt. perseverates on washing her clothes and finding her blouses in ER. RN called ER and discussed missing items with Malena KHAN who reported that pt. transfered to with all belonging she came to ER with. Pt. reports back pain 09/26. What has happened this shift: Pt.'s blood pressure on arrival was 183/88, temp of 99.1, HR 91, SP02 98, Resp of 20. Pt. c/o of headache and lightheadedness. Pt. encouraged to lay down. Pt.'s medication reconcilation completed. RN recieved medications at 1300 and pt.'s lisinopril, zyprexa, and dilantin given at 12:30. Pt.'s blood pressure reassessed and hour later and blood pressure decreased to 152/76 and temp of 98.1. Pt. reports voices decreased as well. Pt.'s PPD administered and intevention placed in [facility] for reassessment in 48 hours. Pt. reports constipation, that she has not had a BM since the 12 of November. Pt. given milk of magnesia po @ 14:13. MRSA swab done and sent to lab, results pending. Pt. showered and went to group. Diet switched to mechanical soft. S/I, H/I: Pt. reports SI with plan to OD on meds A/VH: Pt. reports hearing AH that say " jazlyn" and blame her. Sleep: Pt. perseverates on getting her sleeping pill tonight. ADL's: Pt. showered, ate lunch, and went to breakfast. Diet changed to mechanical soft. Group attendance: attended group. Were meds taken: Yes Any med S/E: None reported Mental Status Exam Appearance: Neat and dressed appropriately Eye contact: Good Behavior: Cooperative with restlessness, psychomotor activity WNL Speech: Normal Mood: anxious but pleasant Affect: Blunted Thought process: tangential and perseverative. Thought Content: Preoccupation with clothes, bank, medications. Cognition: A&O Insight: Fair Judgment: Fair Interventions PRN's used: MOM Therapeutic interventions: Provided active listening, maintained a safe and supportive environment, provided clear and simple instructions, oriented to reality as needed, ensured contract for safety, observed for any changes in behavior, performed tenia pedis tx as ordered, educated pt. on importance of attending groups, and maintained Q 15 min safety checks. Restraints/seclusion/emergency medication: N/A Justification of Continued Inpatient Treatment: Pt. requires ABT therapy, continued medication adjustments, and a safe and supportive environment with ongoing group therapy.
[2018-11-14 19:54] VITALS: BP 137/51
--- NOTE | 2018-11-15 00:03 | NUR ---
Nursing Progress Note Legal hold: 5150 Client on involuntary status for GD/DTS Report received from nurse with use of SBAR: BILL cobb Why are they here: Pt. is an involuntary admission after being brought to the the ER on the evening of 11/13 for SI with plan to overdose. Pt. has a hx of 4 previous suicide attempts by OD. Assessment What has happened this shift: Patient was in her room at the change of shift. She was sitting up in bed filling out a calendar for her purse/wallet. She did this the remainder of the shift till she went to sleep. She was pleasant, cooperative, and friendly. Her 1:1 assessment was done at the bedside. She confirmed AH saying they keep repeating " Maryl.", she denied any current SI intent or plan. She seems to perseverate on her clothes being washed and asked several times to have items washed or when they would be done being washed. Clothes that were washed were brought to patient as soon as they were done. She did go to the group room this evening for and evening snack, but then promptly returned to her room. She requested her medications be given later in the shift which were administered at 2201. A 2 person skin assessment was done by this literary writer and BILL Sheehan. S/I, H/I: Denies A/VH: AH voices keep repeating " Maryl." Sleep: Currently sleeping, see sleep assessment ADL's: Independent Were meds taken: Yes Any med S/E: None reported Mental Status Exam Appearance: Neat and dressed appropriately Eye contact: Good Behavior: Cooperative, psychomotor activity WNL Speech: WNL, normal rate, volume and rhythm Mood: Pleasant Affect: Blunted Thought process: Perseverative. Thought Content: Preoccupation with clothes, calendar, and AH Cognition: A&O Insight: Fair Judgment: Fair Interventions PRN's used: MOM Therapeutic interventions: 1:1 assessment with patient, provided active listening, maintained a safe and therapeutic environment to help establish rapport. Monitored patients behavior. Educated patient on medications and medication regimen. Monitored for side effects of medications. Maintained Q 15 minute checks for safety. Restraints/seclusion/emergency medication: N/A Justification of Continued Inpatient Treatment: Pt. requires ABT therapy, continued medication adjustments, and a safe and supportive environment with ongoing group
[2018-11-15 07:44] VITALS: BP 166/76
[2018-11-15] MEDS ORDERED: OLANZapine 5mg rapidly disint. tablet PO SCH (08:00)
[2018-11-15] MEDS ORDERED: lisinopril 20mg tablet PO SCH (08:00)
[2018-11-15] MEDS: PALIPERIDONE 3 MG TAB.ER.24 PO SCH (08:27)
[2018-11-15] MEDS: phenytoin sod ER 100mg capsule PO SCH ×3 (08:28→20:55)
[2018-11-15] MEDS: lisinopril 20mg tablet PO SCH (08:28)
[2018-11-15 12:21] LABS: HEMOGLOBIN A1C 5.5 % (4.5-6.2)
[2018-11-15 12:26] LABS: PHENYTOIN (DILANTIN) 5.1 UG/ML (10.0-20.0)
--- NOTE | 2018-11-15 16:54 | NUR ---
Nursing Progress Note Legal hold: 5150 Client on involuntary status for GD/DTS Report received from nurse with use of SBAR: BILL Welsh Why are they here: Pt. is an involuntary admission after being brought to the the ER on the evening of 11/13 for SI with plan to overdose. Pt. has a hx of 4 previous suicide attempts by OD. Assessment What has happened this shift: Received patient awake in bed after having taken a shower just before dayshift started. Patient denies any pain and currently denies depression stating she felt really good that she had had a good nights sleep. Patient also stated that that MOM had been successful and she had just had a bowel movement. Patient continues to endorse auditory hallucinations saying Maryl patient currently denies thoughts of suicide. Patient spent most of the day laying on her bed. Patient observed talking to her self at times and did not initiate interaction with peers today. Patient has bright affect and is pleasant when interacted with. S/I, H/I: Denies A/VH: AH voices keep repeating " Maryl." Sleep: only slept 3.5 hours last night and Dr. Farah increased her ambien for tonight. ADL's: Independent Were meds taken: Yes Any med S/E: None reported Mental Status Exam Appearance: Neat and dressed appropriately Eye contact: Good Behavior: Cooperative, psychomotor activity WNL Speech: WNL, normal rate, volume and rhythm Mood: Pleasant Affect: Blunted Thought process: Perseverative. Thought Content: Preoccupation with AH Cognition: A&O Insight: Fair Judgment: Fair Interventions PRN's used: Therapeutic interventions: 1:1 assessment with patient, provided active listening, maintained a safe and therapeutic environment to help establish rapport. Monitored patients behavior. Educated patient on medications and medication regimen. Monitored for side effects of medications. Maintained Q 15 minute checks for safety. Restraints/seclusion/emergency medication: N/A Justification of Continued Inpatient Treatment: Pt. requires ABT therapy, continued medication adjustments, and a safe and supportive environment with ongoing group
[2018-11-15] MEDS: magnesium hydroxide 30ml (MOM) UD suspension PO PRN (19:04)
[2018-11-15 20:00] VITALS: BP 139/61
[2018-11-15] MEDS: zolpidem 5mg tablet PO PRN (20:57)
[2018-11-15] MEDS ORDERED: OLANZapine 5mg rapidly disint. tablet PO ONE (22:55)
[2018-11-16] MEDS ORDERED: OLANZapine 5mg rapidly disint. tablet PO ONE (00:35)
--- NOTE | 2018-11-16 00:53 | NUR ---
Nursing Progress Note Legal hold: 5150 Client on involuntary status for GD/DTS Report received from nurse with use of SBAR: BILL Anna Why are they here: Pt. is an involuntary admission after being brought to the the ER on the evening of 11/13 for SI with plan to overdose. Pt. has a hx of 4 previous suicide attempts by OD. Assessment What has happened this shift: Patient was in her room at the change of shift. She was lying down in bed. She was pleasant, cooperative, and friendly. Her 1:1 assessment was done at the bedside. She confirmed AH, but she did not go into detail on them. She said they keep saying stupid things. She requested medicine to make the voices go away. She denied any current SI intent or plan. She has had trouble sleeping. Dr Moreira contact printer dry film was notified, and zydis was ordered. Patient still can not sleep and is frequently heard talking to herself in her room. S/I, H/I: Denies A/VH: AH voices, non specific Sleep: Trouble sleeping ADL's: Independent Were meds taken: Yes Any med S/E: None reported Mental Status Exam Appearance: Neat and dressed appropriately Eye contact: Good Behavior: Cooperative, psychomotor activity WNL Speech: WNL, normal rate, volume and rhythm Mood: Pleasant Affect: Blunted Thought process: Perseverative. Thought Content: Preoccupation with voices Cognition: A&O Insight: Fair Judgment: Fair Interventions PRN's used: MOM Therapeutic interventions: 1:1 assessment with patient, provided active listening, maintained a safe and therapeutic environment to help establish rapport. Monitored patients behavior. Educated patient on medications and medication regimen. Monitored for side effects of medications. Maintained Q 15 minute checks for safety. Restraints/seclusion/emergency medication: N/A Justification of Continued Inpatient Treatment: Pt. requires ABT therapy, continued medication adjustments, and a safe and supportive environment with ongoing group
[2018-11-16] MEDS: lisinopril 20mg tablet PO SCH (07:51)
[2018-11-16] MEDS: PALIPERIDONE 3 MG TAB.ER.24 PO SCH (07:51)
[2018-11-16] MEDS: phenytoin sod ER 100mg capsule PO SCH ×3 (07:51→20:31)
[2018-11-16 08:03] VITALS: BP 133/73
[2018-11-16] MEDS: QUEtiapine 25mg tablet PO SCH (12:45)
--- NOTE | 2018-11-16 17:06 | NUR ---
Nursing Progress Note Legal hold: 5150 Client on involuntary status for DTS Report received from nurse with use of SBAR: BILL Lawton Why are they here: Pt. is an involuntary admission after being brought to the the ER on the evening of 11/13 for SI with plan to overdose. Pt. has a hx of 4 previous suicide attempts by OD. Diagnosis/presenting symptoms: F20.9 - Schizophrenia, unspecified Overdose: T50.902D - Poisoning by unspecified drugs, medicaments and biological substances, intentional self-harm, subsequent encounter Assessment What has happened this shift: Patient is resting at change of shift. She is easily awoken and reports that she did not sleep well last night. Report received from rn shift mgr that patient slept 3hrs last night. Patient does not elaborate on why she didn't sleep. She takes her medications without issue. She does not get up for breakfast and states that she just isnt hungry. She lays back down in her bed. She is observed resting 30minutes later. She rests for roughly 1.5hrs and then requests to shower. Patient refuses to attend group reporting that she does not feel well and rubs her tummy. She relates her A/H with her stomach upset and reports that this usually happens. At lunch time patient reports that she is going to get up and join others for lunch. She requests this RN weigh her, she weighs 123.86 lbs. She states "Oh good, last week I weighed 127. Patient then refuses to go to lunch because her stomach is upset. RN asked if warm tea or 7-up would be helpful to which patient requested juice. RN encouraged patient to take a look at her lunch tray to see if there was anything she would like. Patient agrees and then sits to eat. After eating she returns to her room and is observed resting. S/I, H/I: passive S/I, when asked if feeling suicidal she states "I just dont know." A/VH: negative A/H Sleep: Trouble sleeping, slept 3hrs NOC and napped during the day ADL's: Independent Were meds taken: Yes Any med S/E: None reported Mental Status Exam Appearance: Neat and dressed appropriately Eye contact: direct Behavior: friendly, cooperative, isolative Speech: soft tone, normal rate/rhythm Mood: Pleasant with RN reports depression Affect: smiles appropriately Thought process: circumstantial Thought Content: Preoccupation with voices Cognition: A&O Insight: Fair Judgment: Fair Interventions PRN's used: MOM Therapeutic interventions: 1:1 assessment with patient, provided active listening, maintained a safe and therapeutic environment to help establish rapport. Monitored patients behavior. Educated patient on medications and medication regimen. Monitored for side effects of medications. Maintained Q 15 minute checks for safety. Restraints/seclusion/emergency medication: N/A Justification of Continued Inpatient Treatment: Continued therapeutic support and medication management needed to provide stabilization, prevent decompensation, decreasing risk to patient and readmittance.
[2018-11-16 19:40] VITALS: BP 136/63
[2018-11-16] MEDS: zolpidem 5mg tablet PO PRN (20:34)
[2018-11-16] MEDS ORDERED: quetiapine 100mg tablet PO SCH (21:00)
--- NOTE | 2018-11-17 01:17 | NUR ---
Nursing Progress Note Legal hold: 5150 Client on involuntary status for GD/DTS Report received from nurse with use of SBAR: BILL Salazar Why are they here: Pt. is an involuntary admission after being brought to the the ER on the evening of 11/13 for SI with plan to overdose. Pt. has a hx of 4 previous suicide attempts by OD. Assessment What has happened this shift: Patient was in her room at the change of shift. She was lying down in bed and reading a book called "Lean In". She was pleasant, cooperative, and friendly. Her 1:1 assessment was done at the bedside. She confirmed AH, describing them as "someone being mean to my son". She said they keep being mean to her son. She denied any current SI intent or plan. She has had trouble sleeping, and was started again on Seroquel tonight. Patient appears to be sleeping well tonight, and is snoring loudly. S/I, H/I: Denies A/VH: AH voices, non specific Sleep: sleeping better than previous night. ADL's: Independent Were meds taken: Yes Any med S/E: None reported Mental Status Exam Appearance: Neat and dressed appropriately Eye contact: Good Behavior: Cooperative, psychomotor activity WNL Speech: WNL, normal rate, volume and rhythm Mood: Pleasant Affect: Blunted Thought process: Perseverative. Thought Content: Preoccupation with voices Cognition: A&O Insight: Fair Judgment: Fair Interventions PRN's used: MOM, Ambien Therapeutic interventions: 1:1 assessment with patient, provided active listening, maintained a safe and therapeutic environment to help establish rapport. Monitored patients behavior. Educated patient on medications and medication regimen. Monitored for side effects of medications. Maintained Q 15 minute checks for safety. Restraints/seclusion/emergency medication: N/A Justification of Continued Inpatient Treatment: Pt. requires ABT therapy, continued medication adjustments, and a safe and supportive environment with ongoing group
[2018-11-17] MEDS: lisinopril 20mg tablet PO SCH (07:29)
[2018-11-17] MEDS: phenytoin sod ER 100mg capsule PO SCH ×3 (07:30→20:51)
[2018-11-17] MEDS: QUEtiapine 25mg tablet PO SCH ×2 (07:34→12:32)
[2018-11-17 08:00] VITALS: BP 171/76
[2018-11-17] MEDS: magnesium hydroxide 30ml (MOM) UD suspension PO PRN (13:40)
--- NOTE | 2018-11-17 18:04 | NUR ---
Nursing Progress Note : Legal hold: 5150 Client on involuntary status for GD/DTS Report received from nurse with use of SBAR: BILL Ray Why are they here: Pt. is an involuntary admission after being brought to the the ER on the evening of 11/13 for Suicide attempt by OD on 12-16 pills of Mirtazapine and Seroquil. Pt. has a hx of 4 previous suicide attempts by OD. Assessment Pt. was pleasant but isolative during the day. Pt.'s thought process more linear, less perseverative. Staying in her room and reading her book. Pt. could be overheard talking to herself at times. When this RN assessed her, pt. stated, "I heard some voices. they ruined my happy attitude... They were saying stupid stuff." Pt. would not eleborate on what the voices were telling her. Pt. reports her Seroquil is working "ok". Pt. states she slept 6 hours last night which was better than the night before when she could not sleep. Pt. said she spoke with her younger son last night. Pt. reports she feels supported by her children. Pt. talked at length about her work and family history. Pt. has worked multiple secretarial jobs. Pt. states, "I like to be busy, but now I just lay in bed all day, do nothing but take naps. I would like to get a part-time job". Pt.'s blood pressure at beginning of shift was 171/76. After pt.'s lisinopril was given, blood pressure was reassesed and BP dropped to 127/67 with a pulse of 90. Pt. reports having constipation, RN gave pt. milk of magnesia @ 13:35. What has happened this shift: S/I, H/I: Denies A/VH: AH voices saying "stupid stuff" Sleep: Pt. reports sleeping 6 hours last night which is better than the night before. ADL's: Independent Were meds taken: Yes Any med S/E: None reported Mental Status Exam Appearance: Neat and dressed appropriately Eye contact: Good Behavior: Cooperative, psychomotor activity WNL Speech: WNL, normal rate, volume and rhythm Mood: Pleasant Affect: Blunted Thought process: Thought process was more linear. Thought Content: Preoccupation with voices Cognition: A&Ox4 Insight: Fair Judgment: Fair Interventions PRN's used: MOM Therapeutic interventions: 1:1 assessment with patient, provided active listening, maintained a safe and therapeutic environment to help establish rapport. Monitored patients behavior. Educated patient on medications and medication regimen. Monitored for side effects of medications. Maintained Q 15 minute checks for safety. Restraints/seclusion/emergency medication: N/A Justification of Continued Inpatient Treatment: Pt. requires ABT therapy, continued medication adjustments, and a safe and supportive environment with ongoing group
[2018-11-17 20:00] VITALS: BP 136/55
[2018-11-17] MEDS: quetiapine 100mg tablet PO SCH (20:53)
[2018-11-17] MEDS: zolpidem 5mg tablet PO PRN (22:25)
--- NOTE | 2018-11-18 00:32 | NUR ---
Nursing Progress Note : Legal hold: 5250 Client on involuntary status for GD Report received from nurse with use of SBAR: BILL Mendenhall Why are they here: Pt. is an involuntary admission after being brought to the the ER on the evening of 11/13 for Suicide attempt by OD on 12-16 pills of Mirtazapine and Seroquil. Pt. has a hx of 4 previous suicide attempts by OD. Assessment What happened during the shift: Pt in room reading except to attend snack. Pt is smiling and cooperative but responds to internal stimuli. She confirms having AH and states the voices say "silly things, like 'You should harm yourself' or 'bet you're tired of being a cunt'. She laughs for 5 minutes after divulging the last thought. She states the voices are a "little better" and that "reading helps to distract me a little bit". Pt responds to her AH, but states "I'm talking to myself" when the RN inquires. RN found pt retching in bathroom; pt denies feeling poorly just that she "had to get it out". S/I, H/I: Denies A/VH: AH - voices saying aforementioned statements Sleep: See Charting ADL's: Independent Were meds taken: Y Any med S/E: None reported, none observed Mental Status Exam Appearance: Neat and dressed appropriately Eye contact: Good Behavior: Cooperative, laughing, responding to AHs Speech: WNL, normal rate, volume and rhythm Mood: Pleasant Affect: Expressive Thought process: Linea Thought Content: Preoccupation with voices Cognition: A&Ox4 Insight: Fair Judgment: Fair Interventions PRN's used: None Therapeutic interventions: 1:1 assessment with patient, provided active listening, maintained a safe and therapeutic environment to help establish rapport. Monitored patients behavior. Educated patient on medications and medication regimen. Monitored for side effects of medications. Maintained Q 15 minute checks for safety. Restraints/seclusion/emergency medication: N/A Justification of Continued Inpatient Treatment: Pt. requires ABT therapy, continued medication adjustments, and a safe and supportive environment with ongoing group.
[2018-11-18 07:49] VITALS: BP 117/65
[2018-11-18] MEDS: lisinopril 20mg tablet PO SCH (08:10)
[2018-11-18] MEDS: QUEtiapine 25mg tablet PO SCH ×2 (08:10→12:34)
[2018-11-18] MEDS: phenytoin sod ER 100mg capsule PO SCH ×3 (08:10→20:34)
--- NOTE | 2018-11-18 13:05 | NUR ---
1:1 DISCHARGE PLANNING: ELLEN made TC to Romina HAYDEN at [phone], regarding case management services through [facility]. ELLEN informed Romina would communicate with Dr. Farah for referral and entry to case management services. ELLEN scheduled follow up appointments for patient discharge next week. JOHNATHAN Flores
--- NOTE | 2018-11-18 13:45 | NUR ---
Nursing Progress Note : Legal hold: 5250 Client on involuntary status for GD Report received from nurse with use of SBAR: BILL Welsh Why are they here: Pt. is an involuntary admission after being brought to the the ER on the evening of 11/13 for Suicide attempt by OD on 12-16 pills of Mirtazapine and Seroquil. Pt. has a hx of 4 previous suicide attempts by OD. Assessment What happened during the shift: Pt up early, showered before breakfast, ate breakfast in the community room, denies depression, anxiety, HI/VH, pt returned to room after breakfast, overheard pt talking to herself. When asked if she was feeling like hurting herself she replied, "It's stupid, it's these voices." When asked what the voices were saying she at first stated, "I don't want to say" then "they're on my son, not with my son." When asked pt to clarify what she meant by this, pt had difficulty focusing and organizing her thoughts, stated, "it's on my son not with my son." then went on to say that the things they are saying are a lie. S/I, H/I: Pt denies A/VH: Denies VH, +AH Sleep: Pt only slept 3.75 hours per noc shift report ADL's: Independent Were meds taken: Yes Any med S/E: None reported or observed Mental Status Exam Appearance: Neat, clean, dressed Eye contact: Good Behavior: restless, impulsive, Speech: speaks rapidly Mood: pleasant, cooperative, anxious Affect: animated Thought process: disorganized, scattered, easily distracted, difficulty focusing Thought Content: internally preoccupied with intrusive, persistent voices Cognition: A&Ox4 Insight: Fair Judgment: Fair Interventions PRN's used: None Therapeutic interventions: 1:1 assessment, therapeutic listening, maintained a safe and therapeutic environment, medication administration/ monitoring/education,Q15 minute checks for safety. Restraints/seclusion/emergency medication: N/A Justification of Continued Inpatient Treatment: Pt continues to have intrusive, persistent AH which have driven her to OD on meds in the past, is internally preoccupied, has insomnia, and is unable to formulate a viable plan for food, clothing, and snf, she needs further medication administration and crisis interruption in a safe, therapeutic environment. Addendum: 11/18/18 at 1601 by Joselin Gaxiola RN ([place]) Pt had a hearing today, 5250 was upheld.
[2018-11-18 20:00] VITALS: BP 154/75
[2018-11-18] MEDS: quetiapine 100mg tablet PO SCH (20:34)
[2018-11-18] MEDS: zolpidem 5mg tablet PO PRN (21:03)
--- NOTE | 2018-11-19 04:26 | NUR ---
Nursing Progress Note : Legal hold: 5250 Client on involuntary status for GD Report received from nurse with use of SBAR: BILL Olivera Why are they here: Pt. is an involuntary admission after being brought to the the ER on the evening of 11/13 for Suicide attempt by OD on 12-16 pills of Mirtazapine and Seroquil. Pt. has a hx of 4 previous suicide attempts by OD. Assessment What happened during the shift: Patient is sitting in her room. She is well oriented and cooperative with this principal technical writer. Patient states "I'm feeling ok, I've been eating a lot of food." This patient states " I've been hearing voices and having conversations with them. They tell me you're Maril." Patient denies S/I or H/I. No visual hallucinations present. Patient states "I've been diagnosed as a paranoid schizophrenic, but I think that is a bit severe." Patient did have a normal bowel movement today. Patient experienced nausea earlier, none now. S/I, H/I: Pt denies A/VH: Denies VH, +AH Sleep: Patient has been mostly asleep at the time of this report. ADL's: Independent Were med's taken: Yes Any med S/E: None reported or observed Mental Status Exam Appearance: Neat, clean, dressed Eye contact: Good Behavior: restless, impulsive, Speech: speaks rapidly Mood: pleasant, cooperative, anxious Affect: animated Thought process: disorganized, scattered, easily distracted, difficulty focusing Thought Content: internally preoccupied with intrusive, persistent voices Cognition: A&Ox4 Insight: Fair Judgment: Fair Interventions PRN's used: None Therapeutic interventions: 1:1 assessment, therapeutic listening, maintained a safe and therapeutic environment, medication administration/ monitoring/education,Q15 minute checks for safety. Restraints/seclusion/emergency medication: N/A Justification of Continued Inpatient Treatment: Pt continues to have intrusive, persistent AH which have driven her to OD on med's in the past, is internally preoccupied, has insomnia, and is unable to formulate a viable plan for food, clothing, and mcc, she needs further medication administration and crisis interruption in a safe, therapeutic environment. Patient had a judicial hearing and her 5250 has been upheld.
[2018-11-19 07:29] VITALS: BP 134/74
[2018-11-19] MEDS: QUEtiapine 25mg tablet PO SCH ×2 (08:06→13:08)
[2018-11-19] MEDS: lisinopril 20mg tablet PO SCH (08:06)
[2018-11-19] MEDS: phenytoin sod ER 100mg capsule PO SCH ×3 (08:07→21:09)
--- NOTE | 2018-11-19 09:01 | NUR ---
1:1 DISCHARGE PLANNING ELLEN made TC to [facility] at [phone], to learn of pt disposition to return home upon discharge. ELLEN referred to contact [facility]. ELELN made TC to [facility] at [phone], to learn if pt can return to correction residence on [address]. ELLEN left message requesting return contact. JOHNATHAN Flores
--- NOTE | 2018-11-19 11:20 | NUR ---
Eating well, 75-100% PO intake of mechanical soft diet with chopped meats. No GI symptoms. Meeting nutrition needs. Will continue to follow per protocol. Recommend: 1. Continue mechanical soft diet with chopped meats 2. Continue bowel care as needed 3. Weekly wts Addendum: 11/19/18 at [address] Amended: Links added.
[2018-11-19] MEDS: magnesium hydroxide 30ml (MOM) UD suspension PO PRN (15:50)
--- NOTE | 2018-11-19 16:41 | NUR ---
Nursing Progress Note Legal hold: 5150 Client on involuntary status for DTS Report received from nurse with use of SBAR: Yohannes RN Why are they here: Pt. is an involuntary admission after being brought to the the ER on the evening of 11/13 for SI with plan to overdose. Pt. has a hx of 4 previous suicide attempts by OD. Diagnosis/presenting symptoms: F20.9 - Schizophrenia, unspecified Overdose: T50.902D - Poisoning by unspecified drugs, medicaments and biological substances, intentional self-harm, subsequent encounter Assessment What has happened this shift: Patient is observed sleeping at change of shift and is in no observable distress. She awakens easily, she appears happy this morning and her affect is bright. She interacts acts well with others. She takes a shower and then returns to her room. She takes her medications without issue and then joins others for breakfast in the group room. Patient attends group and then is observed going over reading material that was provided. Patient denies feeling of suicidal today. She states that she continues to have A/H with no improvement. She states improved sleep would help. She says that last night she took Seroquel and Ambien at bedtime and then awoke at 0100. She says that she gets better sleep if she only takes that Seroquel then takes the Ambien when she wakes in the middle of the night. Patient denies S/I and continues to report negative AH. S/I, H/I: denies A/VH: negative A/H Sleep: NOC 5.25, reports she feel asleep easily but awoke at 0100. ADL's: Independent, showered today Were meds taken: Yes Any med S/E: None reported Mental Status Exam Appearance: Neat and dressed appropriately Eye contact: direct Behavior: friendly, cooperative Speech: soft tone, normal rate/rhythm Mood: good Affect: congruent to mood Thought process: WNL Thought Content: no delusional thought content present Cognition: A&O Insight: Fair Judgment: Fair Interventions PRN's used: MOM Therapeutic interventions: 1:1 assessment with patient, provided active listening, maintained a safe and therapeutic environment to help establish rapport. Monitored patients behavior. Educated patient on medications and medication regimen. Monitored for side effects of medications. Maintained Q 15 minute checks for safety. Restraints/seclusion/emergency medication: N/A Justification of Continued Inpatient Treatment: Looking for placement, possibly at the [facility]. Continued therapeutic support and medication management needed to provide stabilization, prevent decompensation, decreasing risk to patient and readmittance.
[2018-11-19 20:08] VITALS: BP_SYST 152; BP_SYST 158; BP_DIAS 92; BP_DIAS 98
[2018-11-19] MEDS: quetiapine 100mg tablet PO SCH (21:09)
--- NOTE | 2018-11-19 23:54 | NUR ---
Nursing Progress Note : Legal hold: 5250 Client on involuntary status for GD Report received from nurse with use of SBAR: BILL Salazar Why are they here: Pt. is an involuntary admission after being brought to the the ER on the evening of 11/13 for Suicide attempt by OD on 12-16 pills of Mirtazapine and Seroquil. Pt. has a hx of 4 previous suicide attempts by OD. Assessment What happened during the shift: Pt in room reading except to attend snack. Pt is smiling and cooperative but responds to internal stimuli. She confirms having AH and states the voices say " Marie" or 'you're a bad person' and similar "derogatory statements, but they are quieter". She laughs spontaneously at times, and is routinely responds to her AH, but states "I'm talking to myself" when the RN inquires. No emesis this shift, but patient was wanting RN to weigh her because she is "concerned about her weight." S/I, H/I: Denies A/VH: + AH - voices saying aforementioned statements Sleep: See Charting ADL's: Independent Were meds taken: Y Any med S/E: None reported, none observed Mental Status Exam Appearance: Neat and dressed appropriately Eye contact: Direct Behavior: Cooperative, reading, responding to AHs Speech: Soft, sometimes speaks rapidly Mood: Pleasant Affect: Expressive, spontaneous laughter Thought process: Linear Thought Content: Preoccupation with voices Cognition: A&Ox4 Insight: Fair Judgment: Fair Interventions PRN's used: None Therapeutic interventions: 1:1 assessment with patient, provided active listening, maintained a safe and therapeutic environment to help establish rapport. Monitored patients behavior. Educated patient on medications and medication regimen. Monitored for side effects of medications. Maintained Q 15 minute checks for safety. Restraints/seclusion/emergency medication: N/A Justification of Continued Inpatient Treatment: Pt. requires ABT therapy, continued medication adjustments, and a safe and supportive environment with ongoing group. SW contacted [facility], waiting to hear back.
[2018-11-20 08:00] VITALS: BP 144/70
[2018-11-20] MEDS: QUEtiapine 25mg tablet PO SCH ×3 (08:10→14:00)
[2018-11-20] MEDS: phenytoin sod ER 100mg capsule PO SCH ×3 (08:10→20:28)
[2018-11-20] MEDS: lisinopril 20mg tablet PO SCH (08:10)
--- NOTE | 2018-11-20 14:16 | NUR ---
1:1 DISCHARGE PLANNING SW made TC to [facility] to learn of "bubble pack" request procedures. SW will have return call once the clinical dental technician returns from lunch. JOHNATHAN Flores
--- NOTE | 2018-11-20 14:17 | NUR ---
RN administered Seroquel 12.5mg prior to order of Seroquel 25mg being put in.
--- NOTE | 2018-11-20 18:04 | NUR ---
Nursing Progress Note Legal hold: 5150 Client on involuntary status for DTS Report received from nurse with use of SBAR: BILL Welsh Why are they here: Pt. is an involuntary admission after being brought to the the ER on the evening of 11/13 for SI with plan to overdose. Pt. has a hx of 4 previous suicide attempts by OD. Diagnosis/presenting symptoms: F20.9 - Schizophrenia, unspecified Overdose: T50.902D - Poisoning by unspecified drugs, medicaments and biological substances, intentional self-harm, subsequent encounter Assessment What has happened this shift: Patient is observed resting in her bed at change of shift. She reports sleeping better the night before and waking at 4AM without the use of Ambien. She met with others in the group room for breakfast and took all her medications without issue. After meeting with the doctor she took a shower. She attended all groups today. She continues to suffer from negative AH. RN spoke with Dr Farah, plan is to increase seroquel to 25mg qday at 0800 and 1300. Continue to encourge not using Ambien. S/I, H/I: denies A/VH: negative A/H Sleep: NOC 7.5, reports she awoke at 0400. ADL's: Independent, showered Group attendance: Yes Were meds taken: Yes Any med S/E: None reported Mental Status Exam Appearance: Neat and dressed appropriately Eye contact: direct Behavior: friendly, cooperative Speech: soft tone, normal rate/rhythm Mood: good Affect: congruent to mood Thought process: WNL Thought Content: no delusional thought content present Cognition: A&O Insight: Fair Judgment: Fair Interventions PRN's used: none Therapeutic interventions: 1:1 communication with RN that included active listening with positive feedback, maintained a safe and therapeutic environment, provided medication education, and maintained Q 15 min safety checks. Restraints/seclusion/emergency medication: N/A Justification of Continued Inpatient Treatment: Looking for placement, possibly at the [facility]. Continued therapeutic support and medication management needed to provide stabilization, prevent decompensation, decreasing risk to patient and readmittance.
[2018-11-20 20:00] VITALS: BP 138/49
[2018-11-20] MEDS: quetiapine 100mg tablet PO SCH (20:29)
--- NOTE | 2018-11-21 01:40 | NUR ---
Nursing Progress Note : Legal hold: 5250 Client on involuntary status for GD Report received from nurse with use of SBAR: BILL Salazar Why are they here: Pt. is an involuntary admission after being brought to the the ER on the evening of 11/13 for Suicide attempt by OD on 12-16 pills of Mirtazapine and Seroquil. Pt. has a hx of 4 previous suicide attempts by OD. Assessment What happened during the shift: Received patient she was laying in bed reading a book. 1:1 assessment completed at bedside. Pt was smiling and cooperative. Stated she did attend group. When asked if she was hearing voices patient stated "I am hearing voices, but they are happy voices, not derogatory." Pt denies AH/VH, states "hallucinations would be terrible." Pt did not request her PRN ambien and has beening sleeping this shift. Dilantin level was 5.1 on 11-15-18. S/I, H/I: Denies A/VH: + AH - States "happy voices" Sleep: See sleep assessment notation ADL's: Independent Were meds taken: Y Any med S/E: None reported, none observed Mental Status Exam Appearance: Neat and dressed appropriately Eye contact: Direct Behavior: Cooperative, reading, responding to AHs Speech: Clear, soft Mood: Pleasant Affect: Expressive, spontaneous laughter Thought process: Linear Thought Content: Preoccupation with voices Cognition: A&Ox4 Insight: Fair Judgment: Fair Interventions PRN's used: None Therapeutic interventions: 1:1 assessment with patient, provided active listening, maintained a safe and therapeutic environment to help establish rapport. Monitored patients behavior. Educated patient on medications and medication regimen. Monitored for side effects of medications. Maintained Q 15 minute checks for safety. Restraints/seclusion/emergency medication: N/A Justification of Continued Inpatient Treatment: Continued medication adjustments, and a safe and supportive environment with ongoing group. SW contacted [facility], waiting to hear back.
[2018-11-21 08:00] VITALS: BP 114/63
[2018-11-21] MEDS: phenytoin sod ER 100mg capsule PO SCH ×3 (08:01→21:27)
[2018-11-21] MEDS: QUEtiapine 25mg tablet PO SCH ×2 (08:01→13:53)
[2018-11-21] MEDS: lisinopril 20mg tablet PO SCH (08:03)
--- NOTE | 2018-11-21 17:29 | NUR ---
Nursing Progress Note Legal hold: 5150 Client on involuntary status for DTS Report received from nurse with use of SBAR: BILL Wheeler Why are they here: Pt. is an involuntary admission after being brought to the the ER on the evening of 11/13 for SI with plan to overdose. Pt. has a hx of 4 previous suicide attempts by OD. Diagnosis/presenting symptoms: F20.9 - Schizophrenia, unspecified Overdose: T50.902D - Poisoning by unspecified drugs, medicaments and biological substances, intentional self-harm, subsequent encounter Assessment What has happened this shift: Patient is observed resting in her bed at shift change. During med pass she is overheard talking to herself. When asked who she is talking to she appears embarrassed and states Oh its nothing. She reports that she is hearing negative voices today. She then goes on to state that she keeps hearing a male and a female voice asking the other patients what do you need. She asks this RN is she hears it to, RN does not. Patient reports feeling a little stressed and mildly agitated because she has been thinking about all the patients here and how they dont work and her son always did. She states that sometimes she has to talk back to the voices and gets embarrassed when she is overheard. When she talks about it her speech becomes increased in rate and slightly mumbly. Patient attends all meals in the group room with others as well as groups. *Dilantin level was 5.1 on 11-15-18. Continue to encourage not using Ambien. Will d/c to [facility], blister packs of medications will be made by [facility]. S/I, H/I: denies A/VH: negative A/H, responding to internal stimuli Sleep: slept well ADL's: Independent, showered Group attendance: Yes Were meds taken: Yes Any med S/E: None reported Mental Status Exam Appearance: Neat and dressed appropriately Eye contact: direct Behavior: friendly, cooperative Speech: soft tone, normal rate/rhythm Mood: good Affect: congruent to mood Thought process: WNL Thought Content: no delusional thought content present Cognition: A&O Insight: Fair Judgment: Fair Interventions PRN's used: none Therapeutic interventions: 1:1 communication with RN that included active listening with positive feedback, maintained a safe and therapeutic environment, provided medication education, and maintained Q 15 min safety checks. Restraints/seclusion/emergency medication: N/A Justification of Continued Inpatient Treatment: Looking for placement, possibly at the [facility]. Continued therapeutic support and medication management needed to provide stabilization, prevent decompensation, decreasing risk to patient and readmittance.
[2018-11-21 20:00] VITALS: BP 149/77
[2018-11-21] MEDS: magnesium hydroxide 30ml (MOM) UD suspension PO PRN (21:26)
[2018-11-21] MEDS: quetiapine 100mg tablet PO SCH (21:27)
--- NOTE | 2018-11-22 04:26 | NUR ---
Nursing Progress Note : Legal hold: 5250 Client on involuntary status for GD Report received from nurse with use of SBAR: BILL Salazar Why are they here: Pt. is an involuntary admission after being brought to the the ER on the evening of 11/13 for Suicide attempt by OD on 12-16 pills of Mirtazapine and Seroquil. Pt. has a history of 4 previous suicide attempts by OD. Assessment What happened during the shift: Received patient she was laying awake with light off. 1:1 assessment completed at bedside. Pt was smiling and cooperative. Patient denies any SI or VH. Pt states "I always hear voices", but did not elaborate on what was said. Observed patient laughing to herself when I was leaving room. Also noted laughing a whisper talk when assessing her roommate. Pt stated she didn't have a BM during the day and requested MOM and some apple juice. S/I, H/I: Denies A/VH: States "I hear voices all the time"; Observed laughing and whispering to self Sleep: See sleep assessment notation ADL's: Independent Were meds taken: Y Any med S/E: None reported or observed Mental Status Exam Appearance: Neat and dressed appropriately Eye contact: Direct Behavior: Cooperative, responding to internal stimuli Speech: Clear, soft, normal rhythm Mood: Pleasant Affect: Congruent with mood Thought process: Linear Thought Content: Preoccupation with internal stimuli Cognition: A&Ox4 Insight: Fair Judgment: Fair Interventions PRN's used: None Therapeutic interventions: 1:1 assessment with patient, provided active listening, maintained a safe and therapeutic environment to help establish rapport. Monitored patients behavior. Educated patient on medications and medication regimen. Monitored for side effects of medications. Maintained Q 15 minute checks for safety. Restraints/seclusion/emergency medication: N/A Justification of Continued Inpatient Treatment: Continued medication adjustments, and a safe and supportive environment with ongoing group. Pt being discharged to [facility]. Blister packs of medications for a week at a time will be filled by [facility].
[2018-11-22 07:34] VITALS: BP 147/70
[2018-11-22] MEDS: QUEtiapine 25mg tablet PO SCH ×2 (07:54→13:20)
[2018-11-22] MEDS: phenytoin sod ER 100mg capsule PO SCH ×3 (07:55→20:50)
[2018-11-22] MEDS: lisinopril 20mg tablet PO SCH (07:55)
--- NOTE | 2018-11-22 15:25 | NUR ---
Nursing Progress Note : Legal hold: 5250 Client on involuntary status for GD Report received from nurse with use of SBAR: Summer RN Why are they here: Pt. is an involuntary admission after being brought to the the ER on the evening of 11/13 for Suicide attempt by OD on 12-16 pills of Mirtazapine and Seroquel. Pt. has a history of 4 previous suicide attempts by OD. Assessment What happened during the shift: PCT reported that pt was arguing with the voices before breakfast, overheard her yelling, "I'm not going to do it, I'm not going to do it!" Went to assess pt and administer routine meds, pt denied depression, SI/HI/VH. Pt c/o anxiety because she wanted to call her credit card company and have her credit limit lowered by $1000, was asking to get her credit card out of the safe so she could do so. Established that the pt was not behind on her payments. Pt stated that she had recently paid the sum of $800 on the card as she had received some extra social security money. Asked pt what her credit limit was, she replied $10,000. Asked how much she had on the card, she replied, $9,200. Explained to pt that there was no way they would lower her credit limit by $1000 since that would put her $200 over her limit. Pt replied, "I never thought about that." When asked about the voices today, she replied, "I'm ignoring them because my mind is on my credit card." While walking out of room, overheard pt ask, "Is someone trying to take my son's life away?" Walked back in and asked, "pardon me?" Pt stated, "Oh, I'm just talking to myself." Changed pt's ID wrist band today as icons were too faded to scan. S/I, H/I: Pt denies A/VH: Denies VH, minimizing AH Sleep: Slept 5 hours per noc shift report ADL's: Independent Were meds taken: Yes Any med S/E: None reported or observed Mental Status Exam Appearance: Neat and dressed appropriately, showered before breakfast Eye contact: Good Behavior: Restless, somewhat agitated, appears to be responding to internal stimuli Speech: somewhat pressured, mumbles Mood: Anxious Affect: bright, anxious Thought process: Linear Thought Content: Fixated on finance/credit card Cognition: A&O X 3 Insight: Fair Judgment: Fair Interventions PRN's used: None Therapeutic interventions: 1:1 assessment, medication administration/monitoring/education, therapeutic conversation, encouragement to attend groups, Q 15 min checks. Restraints/seclusion/emergency medication: N/A Justification of Continued Inpatient Treatment: Continued medication adjustment/monitoring in a safe and supportive environment. Pt being discharged to [facility]. Blister packs of medications for a week at a time will be filled by [facility].
[2018-11-22 20:00] VITALS: BP 140/68
[2018-11-22] MEDS: quetiapine 100mg tablet PO SCH (20:51)
--- NOTE | 2018-11-22 22:06 | NUR ---
Nursing Note: Per Dr. Garza, endorse to AM shift the need for a possible Dilantin Level redraw tomorrow, last Dilantin level was 5.1 on 11/15/18. He states pt. would probably continue to be low if re-drawn at this time. He is considering administering a loading dose, will endorse to AM shift.
[2018-11-22] MEDS: zolpidem 5mg tablet PO PRN (23:22)
--- NOTE | 2018-11-23 00:57 | NUR ---
Legal hold: 5250 Client on involuntary status for GD Report received from nurse with use of SBAR: BILL Martinez Why are they here: Pt. is an involuntary admission after being brought to the the ER on the evening of 11/13 for Suicide attempt by OD on 12-16 pills of Mirtazapine and Seroquil. Pt. has a history of 4 previous suicide attempts by OD. Assessment What happened during the shift: Received patient she was sitting on edge of bed doing arm circles, "I am just exercising". Patient appeared to be more agitated and restless then previous shifts. This business writer asked how her day went and she said good " I went to group". When administersing medications to her roommate this business writer heard her say "No, you cant' do that." When asked if she needed anything and pt stated "no." Administered medications with no adverse side effects noted. Pt woke up around 2330 and wanted her Ambien, when I got to pt room she was already back to sleep, so i did not administer. S/I, H/I: Denies A/VH: Denies, but pt observed responding to questions and when asked pt states "nothing, just talking to myself" Sleep: See sleep assessment notation ADL's: Independent Were meds taken: Y Any med S/E: None reported or observed Mental Status Exam Appearance: Neat and dressed appropriately Eye contact: Direct Behavior: Cooperative, responding to internal stimuli Speech: Low tone, murmers Mood: Pleasant Affect: Restless Thought process: Linear Thought Content: Preoccupation with internal stimuli Cognition: A&Ox4 Insight: Fair Judgment: Fair Interventions PRN's used: None Therapeutic interventions: 1:1 assessment with patient, provided active listening, maintained a safe and therapeutic environment. Monitored patients behavior. Monitored for side effects of medications. Maintained Q 15 minute checks for safety. Restraints/seclusion/emergency medication: N/A Justification of Continued Inpatient Treatment: Continued medication adjustments, and a safe and supportive environment with ongoing group. Pt being discharged to [facility]. Blister packs of medications for a week at a time will be filled by [facility].
--- NOTE | 2018-11-23 03:03 | NUR ---
Nursing Note: Pt. awakens and requests JASBIR Patton, educated pt. that it 0300 AM and too late to receive sleeping medication. Pt. voiced understanding and requested snack, snack provided, will monitor. Addendum: 11/23/18 at 0307 by Molly Marmolejo RN Pt. also requested to be weighed at this time, per concern that she had lost weight.
[2018-11-23 07:38] VITALS: BP 153/72
[2018-11-23] MEDS: QUEtiapine 25mg tablet PO SCH ×2 (08:08→13:08)
[2018-11-23] MEDS: lisinopril 20mg tablet PO SCH (08:09)
[2018-11-23] MEDS: phenytoin sod ER 100mg capsule PO SCH ×3 (08:09→20:30)
--- NOTE | 2018-11-23 15:03 | NUR ---
Nursing Progress Note : Legal hold: 5250 Client on involuntary status for GD Report received from nurse with use of SBAR: Summer RN Why are they here: Pt. is an involuntary admission after being brought to the the ER on the evening of 11/13 for Suicide attempt by OD on 12-16 pills of Mirtazapine and Seroquel. Pt. has a history of 4 previous suicide attempts by OD. Assessment What happened during the shift: Pt up and showered before breakfast, denied depression, anxiety, SI/HI/VH, admitted to hearing the voices but stated that the only thing they told her today was to take a shower. 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 S/I, H/I: Pt denies A/VH: Denies VH, minimizing AH Sleep: Slept 4.5 hours per noc shift report ADL's: Independent Were meds taken: Yes Any med S/E: None reported or observed Mental Status Exam Appearance: Neat and dressed appropriately, showered before breakfast Eye contact: Good Behavior: Pleasant, cooperative, somewhat restricted Speech: somewhat pressured, mumbles Mood: Anxious Affect: bright, anxious Thought process: Easily distractible, flight of ideas, reality distortion Thought Content: Thinking about finding a part-time job Cognition: A&O X 3, not always oriented to time Insight: Fair Judgment: Fair Interventions PRN's used: None Therapeutic interventions: 1:1 assessment, medication administration/monitoring/education, therapeutic conversation, reality orientation, encouragement to attend groups, Q 15 min checks. Restraints/seclusion/emergency medication: N/A Justification of Continued Inpatient Treatment: Continued medication adjustment/monitoring in a safe and supportive environment. Pt being discharged to [facility]. Blister packs of medications for a week at a time will be filled by [facility].
[2018-11-23 20:00] VITALS: BP 168/79
[2018-11-23] MEDS: quetiapine 100mg tablet PO SCH (20:30)
[2018-11-23] MEDS: zolpidem 5mg tablet PO PRN (20:31)
--- NOTE | 2018-11-24 01:11 | NUR ---
RN PROGRESS NOTE: Legal hold: 5249 Client on involuntary status for GD Report received from nurse with use of SBAR: BILL Martinez Why are they here: The patient was staying at a [facility] where she overdosed on some medications. She informed staff who called EMS and brought to ER where she was placed on 5150. She says that the voices told her to take more medicine. She has multiple prior attempts and was recently discharged from [facility] for the same thing. Assessment: What happened during the shift: The patient was seen in her room for 1:1 at her bedside. She says that she went to both groups and "tried to participate." When asked how she's doing, she says, "I overdosed on some medications, that's why I'm here, but I learned my lesson this time." When asked if she's hallucinating, she denied, but then stated, "I here stuff." She would not elaborate. She reports that she's on some new medication and it's helping. Still, she won't say how it's helping. At one point, she asked to use the phone to call her son, but she actually called 911. Tisha called and said she was calling them. She denies calling 911. The patient later asked to use the phone again, but was told she would be observed. She declined. The patient went to bed right after HS med pass. S/I, H/I: Denies A/VH: Denies, but can be heard talking to someone when walking by her door. Sleep: States she wakes up multiple times at night. ADL's: Independent Were meds taken: Yes Any med S/E: None reported or observed Mental Status Exam Appearance: Neat and dressed appropriately. Eye contact: Direct Behavior: Cooperative, responding to internal stimuli Speech: Quiet, mumbles a lot. Mood: "I'm fine." Affect: Restricted. Thought process: Linear Thought Content: Preoccupation with internal stimuli. Cognition: A&Ox4 Insight: Fair Judgment: Fair Interventions PRN's used: Ambien for sleep with good relief. Therapeutic interventions: 1:1 assessment with patient, provided active listening, maintained a safe and therapeutic environment. Monitored patients behavior. Monitored for side effects of medications. Maintained Q 15 minute checks for safety. Restraints/seclusion/emergency medication: N/A Justification of Continued Inpatient Treatment: Continued medication adjustments, and a safe and supportive environment with ongoing group. Pt being discharged to [facility]. Blister packs of medications for a week at a time will be filled by [facility].
[2018-11-24 07:45] VITALS: BP 148/67
[2018-11-24] MEDS ORDERED: aripiprazole 5mg tablet PO SCH (08:00)
[2018-11-24] MEDS: phenytoin sod ER 100mg capsule PO SCH ×3 (08:31→20:07)
[2018-11-24] MEDS: QUEtiapine 25mg tablet PO SCH ×2 (08:31→13:02)
[2018-11-24] MEDS: magnesium hydroxide 30ml (MOM) UD suspension PO PRN (08:32)
[2018-11-24] MEDS: lisinopril 20mg tablet PO SCH (08:32)
--- NOTE | 2018-11-24 15:25 | NUR ---
Nursing Progress Note : Legal hold: 5250 Client on involuntary status for GD Report received from nurse with use of SBAR: Avila RN Why are they here: Pt. is an involuntary admission after being brought to the the ER on the evening of 11/13 for Suicide attempt by OD on 12-16 pills of Mirtazapine and Seroquel. Pt. has a history of 4 previous suicide attempts by OD. Assessment What happened during the shift: Pt initially would not come out for breakfast this morning, stated, "I'm not hungry...haven't you ever not been hungry before?" "I thing I need milk of magnesia, I think I'm backed up, that's why I'm not hungry." Pt stated she had not had a BM for a couple of days. Told pt would be back with MOM, as leaving the room heard pt say "don't believe it, don't believe it, don't believe it!" repeatedly over and over again. Pt requested to use the phone, asked pt who she was going to call, she stated her son, clarified that she was not going to call 911. Pt stated she was not, also stated, "I didn't call 911, I called the [facility]'s office because stuff coming over the network is from [facility], I used to work for [employer]." Pt stated that this RN could watch her dial her son's number. Pt did not call 911, heard her very briefly speak with son, asked person on the phone rather urgently, "Are you okay?! Are you going to the meeting? Okay, I love you." Pt then went into the dining room and ate her breakfast, administered MOM and routine meds in dining room including new med Abilify. Pt continued to talk to herself/the voices while eating breakfast which is unusual for her as she usually only responds to the voices out loud while she is in her room. Pt did not deny hearing voices but would not elaborate on what they were saying, pt evasive, somewhat guarded. Notified PA of increase in symptoms. PA stated plans on increasing PO Abilify and then possibly switching to injection form. S/I, H/I: Pt denies A/VH: Denies VH, minimizing AH Sleep: Pt does not nap during the day ADL's: Independent Group attendance: no groups today Were meds taken: Yes Any med S/E: None reported or observed Mental Status Exam Appearance: Neat and dressed appropriately, showered before breakfast Eye contact: Good Behavior: somewhat restricted, internally preoccupied, responding to internal stimuli, arguing with the voices Speech: pressured, mumbles Mood: Anxious Affect: animated Thought process: Easily distractible, flight of ideas, reality distortion, paranoid Thought Content: perseverating on safety of son, internally preoccupied with the voices today Cognition: A&O X 4 Insight: Fair Judgment: Fair Interventions PRN's used: None Therapeutic interventions: 1:1 assessment, medication administration/monitoring/education, therapeutic conversation, reality orientation, Q 15 min checks. Restraints/seclusion/emergency medication: N/A Justification of Continued Inpatient Treatment: Pt has not improved, increased internal stimuli and preoccupation with the voices, paranoid that harm may come to her son. Continued medication adjustment/monitoring in a safe and supportive environment. Pt being discharged to [facility]. Blister packs of medications for a week at a time will be filled by [facility].
[2018-11-24] MEDS: aripiprazole 5mg tablet PO SCH (20:06)
[2018-11-24] MEDS: zolpidem 5mg tablet PO PRN (20:07)
[2018-11-24] MEDS: quetiapine 100mg tablet PO SCH (20:07)
[2018-11-24 20:12] VITALS: BP 165/77
--- NOTE | 2018-11-24 22:27 | NUR ---
This investment underwriter heard the patient gagging from the hallway, went in to check and make sure she was alright. This investment underwriter observed the patient with her fingers down her throat forcing herself to throw up. I expressed that she needed to stop doing that, the patient replied saying "Oh there is nothing I can do to stop it, it just happens" explained that I saw her with her fingers in her mouth, she replied saying "Oh no I'm not doing that, it just happens on its own, but I'm not sick or anything". This investment underwriter reported the event to the charge after leaving the room. The charge nurse explained that it's not good to do that, the patient denied that anything was going on. Patient continued with this behavior for the next few minutes.
--- NOTE | 2018-11-25 01:48 | NUR ---
RN PROGRESS NOTE: Legal hold: 5249 Client on involuntary status for GD Report received from nurse with use of SBAR: BILL Martinez Why are they here: The patient was staying at a [facility] where she overdosed on some medications. She informed staff who called EMS and brought to ER where she was placed on 5150. She says that the voices told her to take more medicine. She has multiple prior attempts and was recently discharged from [facility] for the same thing. Assessment: What happened during the shift: The patient was in her room at shift change. Later, she was seen in her room for 1:1 at bedside. "The Doctor says I might not leave tomorrow." She is looking forward to the [facility] where she says that she's been before. As we spoke, the patient would sometimes respond to her inner stimuli. When asked what they say, she got guarded, but did say, "usually they're mean, but sometimes they say nice things, they make me laugh." When asked about last night, and her calling 911, she said, "I did it because I was told to, it was coming across the network." The patient could be heard responding to the voices when alone in her room. 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 The problem is, I have trouble with punctuation." The patient took her nighttime meds then went to bed. S/I, H/I: Denies A/VH: Denies, but can be heard talking to someone when walking by her door. Sleep: Says that she sleeps good. ADL's: Independent Were meds taken: Yes Any med S/E: None reported or observed Mental Status Exam Appearance: Neat and dressed appropriately. Eye contact: Direct Behavior: Cooperative, guarded, responding to internal stimuli Speech: Quiet, mumbles a lot. Mood: "Fine." Affect: Constricted. Thought process: Linear Thought Content: Preoccupation with discharging to [facility]. Cognition: A&Ox4 Insight: Poor Judgment: Poor. Interventions PRN's used: Ambien for sleep with good relief. Therapeutic interventions: 1:1 assessment with patient, provided active listening, maintained a safe and therapeutic environment. Monitored patients behavior. Monitored for side effects of medications. Maintained Q 15 minute checks for safety. Restraints/seclusion/emergency medication: N/A Justification of Continued Inpatient Treatment: Continued medication adjustments, and a safe and supportive environment with ongoing group. Pt being discharged to [facility]. Blister packs of medications for a week at a time will be filled by [facility].
[2018-11-25] MEDS: aripiprazole 5mg tablet PO SCH (07:59)
[2018-11-25] MEDS: phenytoin sod ER 100mg capsule PO SCH ×3 (07:59→20:15)
[2018-11-25] MEDS: QUEtiapine 25mg tablet PO SCH ×2 (07:59→17:58)
[2018-11-25 08:00] VITALS: BP 162/61
[2018-11-25] MEDS: lisinopril 20mg tablet PO SCH (08:00)
--- NOTE | 2018-11-25 14:32 | NUR ---
Nursing Progress Note : Legal hold: 5250 Client on involuntary status for GD Report received from nurse with use of SBAR: Avila RN Why are they here: Pt. is an involuntary admission after being brought to the the ER on the evening of 11/13 for Suicide attempt by OD on 12-16 pills of Mirtazapine and Seroquel. Pt. has a history of 4 previous suicide attempts by OD. Assessment What happened during the shift: Patient initially did not want to come to breakfast but patient came and drank a milk and juice but did not eat. Patient stated she is not hungry. Patient denies suicidal ideation and states she is hearing voices but appears to be minimizing her auditory hallucinations. Patient stated she had a medium BM today but still doesn't feel like eating. Patient smiling and appears happy. Patient answers questions appropriately. Pleasant affect with poor insight. S/I, H/I: Pt denies A/VH: Denies VH, minimizing AH Sleep: Pt does not nap during the day ADL's: Independent Group attendance: Yes Were meds taken: Yes Any med S/E: None reported or observed Mental Status Exam Appearance: Neat and dressed appropriately, showered after lunch Eye contact: Good Behavior: somewhat restricted, internally preoccupied, responding to internal stimuli Speech: pressured, mumbles Mood: elevated Affect: animated Thought process: Easily distractible, flight of ideas, reality distortion Cognition: AA&O X 4 Insight: poor Judgment: poor Interventions PRN's used: None Therapeutic interventions: 1:1 assessment, medication administration/monitoring/education, therapeutic conversation, reality orientation, Q 15 min checks. Restraints/seclusion/emergency medication: N/A Justification of Continued Inpatient Treatment: Pt has not improved, increased internal stimuli and preoccupation with the voices, paranoid that harm may come to her son. Continued medication adjustment/monitoring in a safe and supportive environment. Pt being discharged to [facility]. Blister packs of medications for a week at a time will be filled by [facility].
--- NOTE | 2018-11-25 18:39 | NUR ---
Art Therapy Group, continued: Patient was able to follow and complete her activities as directed today. At one point patient was re-directed in her conversation as she went into a tangential explanation of details that were unrelated to the immediate task at hand. She was able to do so having a pleasant attitude. She filled in her [place] with the color blue = calm = releasing anxious mood and wrote " I am your symbol of strength of mind except when I loose it and say bad words. (This may have been directly related to an earlier and irritable communication she expressed in her morning group.) "I think everything will be okay." I wish... I have never wished for anything...I am usually too busy. I want what I have, my own life, that I know in my mind is a good clean life. I need nothing more. Just the bare necessities. I will try harder not to loose it and say wrong things. I believe in Jehovah God. I am myself and do not want to be anybody else, even if worse came to worse." Patient was able to maintain her target focus for the 1 1/2 hour session. Ana Dao MA, [employer] #[id number] [facility] Art Therapist Addendum: 11/25/18 at 1844 by Ana Dao Amended: Links added.
[2018-11-25 20:00] VITALS: BP 130/61
[2018-11-25] MEDS: quetiapine 100mg tablet PO SCH (20:15)
[2018-11-25] MEDS: zolpidem 5mg tablet PO PRN (20:15)
--- NOTE | 2018-11-25 21:39 | NUR ---
RN PROGRESS NOTE: Legal hold: 5249 Client on involuntary status for GD Report received from nurse with use of SBAR: BILL Cheema Why are they here: The patient was staying at a [facility] where she overdosed on some medications. She informed staff who called EMS and brought to ER where she was placed on 5150. She says that the voices told her to take more medicine. She has multiple prior attempts and was recently discharged from [facility] for the same thing. Assessment: What happened during the shift: The patient was seen in her bed at shift change. 1:1 completed at bedside. The patient stated that she was tired, had no appetite today, and just felt like staying in bed. She reports that the "Network is talking to me." I asked what they were telling her, but she just says, "It's thing I won't say, I'm not that kind of person." She says she's ready to discharge to [facility]. 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 She took her HS medication then went to bed. S/I, H/I: Denies A/VH: States, the "Network" talks to her. Sleep: Says that she sleeps good. ADL's: Independent Were meds taken: Yes Any med S/E: None reported or observed Mental Status Exam: Appearance: Neat and dressed appropriately. Eye contact: Direct Behavior: Cooperative, guarded, responding to internal stimuli Speech: Quiet, mumbles a lot. Mood: "Good." Affect: Constricted. Thought process: Linear Thought Content: Preoccupation with discharging to [facility]. Cognition: A&Ox4 Insight: Poor Judgment: Poor. Interventions: PRN's used: Ambien for sleep with good relief. Therapeutic interventions: 1:1 assessment with patient, provided active listening, maintained a safe and therapeutic environment. Monitored patients behavior. Monitored for side effects of medications. Maintained Q 15 minute checks for safety. Restraints/seclusion/emergency medication: N/A Justification of Continued Inpatient Treatment: Continued medication adjustments, and a safe and supportive environment with ongoing group. Pt being discharged to [facility]. Blister packs of medications for a week at a time will be filled by [facility].
[2018-11-26 07:40] VITALS: BP 134/53
[2018-11-26] MEDS: phenytoin sod ER 100mg capsule PO SCH ×3 (07:42→20:53)
[2018-11-26] MEDS: QUEtiapine 25mg tablet PO SCH ×2 (07:43→13:45)
[2018-11-26] MEDS: lisinopril 20mg tablet PO SCH (07:43)
--- NOTE | 2018-11-26 15:03 | NUR ---
Nursing Progress Note : Legal hold: 5250 Client on involuntary status for GD Report received from nurse with use of SBAR: Avila RN Why are they here: Pt. is an involuntary admission after being brought to the the ER on the evening of 11/13 for Suicide attempt by OD on 12-16 pills of Mirtazapine and Seroquel. Pt. has a history of 4 previous suicide attempts by OD. Assessment What happened during the shift: Patient awake at change of shift and requesting a shower. She was compliant with medication administration. Pt cooperative with assessment. When asked how she felt she shared, "feel a lot better." She denied depression, anxiety, and SI. Regarding AH she stated, "just a little bit, laurel like a hum." Pt talked about her previous suicide attempts being linked to panic attacks and hearing the voices. Today, she was noted to be responding to internal stimuli and having a conversations with herself. Pt attended groups. S/I, H/I: Denies A/VH: She reports AH and frequently talks to herself. Sleep: Pt woke up early in the morning. ADL's: Independent Group attendance: Yes Were meds taken: Yes Any med S/E: None reported or observed Mental Status Exam Appearance: Neat and clean, shower in the AM Eye contact: Direct Behavior: Responding to internal stimuli Speech: Pressured, mumbles Mood: Pt states, feel a lot better Affect: Constricted Thought process: Flight of Ideas Cognition: AA&O X 4 Insight: poor Judgment: poor Interventions PRN's used: None Therapeutic interventions: 1:1 therapeutic assessment, medication administration/monitoring/education, active listening, reality orientation, Q 15 min checks. Restraints/seclusion/emergency medication: N/A Justification of Continued Inpatient Treatment: Pt continuing to respond to internal stimuli. Pt needs continued medication adjustment/monitoring in a safe and supportive environment.
[2018-11-26 20:46] VITALS: BP 155/77
[2018-11-26] MEDS: quetiapine 100mg tablet PO SCH (20:54)
--- NOTE | 2018-11-26 22:36 | NUR ---
RN PROGRESS NOTE: Legal hold: 5249 Client on involuntary status for GD Report received from nurse with use of SBAR: Isabel RN Why are they here: The patient was staying at a [facility] where she overdosed on some medications. She informed staff who called EMS and brought to ER where she was placed on 5150. She says that the voices told her to take more medicine. She has multiple prior attempts and was recently discharged from [facility] for the same thing. Assessment: What happened during the shift: The patient was seen in her bed at shift change. 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 She confirms AH, stating they say "poor Marie" and "other silly things but I don't want to say." Pt said the voices are not telling her to hurt herself, just "silly things". Pt wanted MOM but her bowel sounds are hyperactive and she has flatus. Pt would not tell RN when she last had a BM but per the charting it is 11/25; Pt states "I just want to make sure I continue to go." RN explained that MOM should not be used for regularity but when one is truly constipated. RN offered prune juice which Pt accepted. Will continue to monitor BMs. S/I, H/I: Denies A/VH: +; "poor Marie" and "silly things" Sleep: See Charting ADL's: Independent Were meds taken: Y Any med S/E: None reported or observed Mental Status Exam: Appearance: Neat, clean and dressed appropriately. Eye contact: Direct Behavior: Cooperative, responding to internal stimuli Speech: Rapid at times, slightly slurred Mood: "I feel better" Affect: Pleasant. Thought process: Linear Thought Content: Preoccupation with having a BM Cognition: A&Ox4 Insight: Poor Judgment: Poor Interventions: PRN's used: None Therapeutic interventions: 1:1 assessment with patient, provided active listening, maintained a safe and therapeutic environment. Monitored patients behavior. Monitored for side effects of medications. Maintained Q 15 minute checks for safety. Restraints/seclusion/emergency medication: N/A Justification of Continued Inpatient Treatment: Continued medication adjustments, and a safe and supportive environment with ongoing group. Pt being discharged to [facility]. Blister packs of medications for a week at a time will be filled by [facility].
[2018-11-27 08:00] VITALS: BP 185/76
[2018-11-27] MEDS: phenytoin sod ER 100mg capsule PO SCH ×3 (08:17→21:22)
[2018-11-27] MEDS: lisinopril 20mg tablet PO SCH (08:17)
[2018-11-27] MEDS: QUEtiapine 25mg tablet PO SCH ×2 (08:18→14:09)
--- NOTE | 2018-11-27 13:17 | NUR ---
Eating well, 75-100% PO intake of mechanical soft diet with chopped meats. GI symptoms documented as constipation patient did receive milk of magnesia on 11/15, 11/17, 11/19, 11/21, 11/24 and LBM 11/25. Spoke with nurse who reports patient is no longer constipated and is having daily bowel movements, reports that patient is asking for excessive milk of magnesia to use for weight loss, only receiving milk of magnesia as needed for the constipation. Meeting nutrition needs. Will continue to follow per protocol. Recommend: 1. Continue mechanical soft diet with chopped meats 2. Continue bowel care as needed 3. Weekly wts Addendum: 11/27/18 at [address] Amended: Links added.
--- NOTE | 2018-11-27 16:22 | NUR ---
Nursing Progress Note : Legal hold: 5250 Client on involuntary status for GD Report received from nurse with use of SBAR: Yohannes RN Why are they here: Pt. is an involuntary admission after being brought to the the ER on the evening of 11/13 for Suicide attempt by OD on 12-16 pills of Mirtazapine and Seroquel. Pt. has a history of 4 previous suicide attempts by OD. Assessment What happened during the shift: Recieved client resting in bed at change of shift in no distress. She showered, attended breakfast with others and took AM meds without issue.Pt in pleasant mood with mild anxiety. concerned about having more bowel movements. Per pt report, she has a BM approximately every other day. She spent morning resting in bed, making phone calls and attended AM group. Attended afternoon group. Denies AH, SI or and any attempt to make herself vomit. Cooperative and pleasant when spoken to, but answers questions evasively. S/I, H/I: Denies A/VH: She reports AH and frequently talks to herself. Sleep: Pt woke up early in the morning. ADL's: Independent Group attendance: Yes Were meds taken: Yes Any med S/E: None reported or observed Mental Status Exam Appearance: Neat and clean, shower in the AM Eye contact: Direct Behavior: Responding to internal stimuli Speech: Pressured, mumbles Mood: Pt states, feeling better Affect: Constricted Thought process: Flight of Ideas Cognition: AA&O X 4 Insight: poor Judgment: poor Interventions PRN's used: None Therapeutic interventions: 1:1 therapeutic assessment, medication administration/monitoring/education, active listening, reality orientation, Q 15 min checks. Restraints/seclusion/emergency medication: N/A Justification of Continued Inpatient Treatment: Pt continuing to respond to internal stimuli. Pt needs continued medication adjustment/monitoring in a safe and supportive environment.
[2018-11-27 20:00] VITALS: BP 141/62
[2018-11-27] MEDS: quetiapine 100mg tablet PO SCH (21:22)
--- NOTE | 2018-11-28 02:28 | NUR ---
Nursing Progress Note: Legal hold: 5250 Client on involuntary status for DTS, GD Report received from nurse with use of SBAR: Segundo RN Why are they here: Pt. readmitted to [facility] after recently being discharged to [facility]. While there she overdosed on prescribed medications (Quetiapine and Mirtazapine), she alerted staff and was brought to the ER. Pt. reported command A/H which compelled her to attempt the overdose. At this time pt. continues to struggle with ongoing A/H and insomnia. Assessment What has happened this shift: Pt. isolating in her room throughout the shift reading a book in bed. She presents as cooperative, animated' and with inappropriate laughter. When questioned by this writer producer regarding the purpose of her laughter, pt. reported she was laughing at the voices in her head and all of the, "Stupid things they say. I don't want to repeat it." Pt. then states, "I should go to the [facility]." However, pt. denies that the A/H are command in nature. She also denies S/I and reports that her depression and anxiety are better. S/I, H/I: Denies A/VH: Ongoing A/H and inappropriate laughter Sleep: Pt. reports she has been able to sleep better, however per sleep records she only averages 4-6 hours/night. She awakens at approximately 0245 and requests PRN Ambien, however she is educated that it is too late at this time to ask for Ambien as it will cause her to be drowsy throughout the day. Pt. voices understanding. ADL's: Independent, however requires some direction from staff at times Group attendance: Attends all groups and identifies a coping mechanism as remembering what her boss used to say to her, "Raise above it," regarding the stressors in her life. Were meds taken: Yes Any med S/E: No Mental Status Exam Appearance: Neatly dressed and groomed Eye contact: Good Behavior: Cooperative and pleasant with inappropriate laughter Speech: Somewhat rapid and hyperverbal at times, however can be redirected Mood: Pleasant Affect: Animated Thought process: Circumstantial, however goal-directed Thought Content: Ongoing A/H and preoccupation with internal stimuli. Cognition: A&O X4 Insight: Poor to fair Judgment: Fair Interventions PRN's used: None Therapeutic interventions: Provided active listening, maintained a safe and therapeutic environment, ensured contract for safety, provided medication education, encouraged independent performance of ADLs, provided a quiet environment to promote sleep, provided clear and simple instructions, reoriented to reality as needed, and maintained Q 15 min safety checks. Restraints/seclusion/emergency medication: N/A Justification of Continued Inpatient Treatment: Pt. continues to require medication adjustments, a therapeutic environment and group participation, and discharge planning.
[2018-11-28 07:39] VITALS: BP 145/61
[2018-11-28] MEDS: QUEtiapine 25mg tablet PO SCH ×2 (08:29→13:26)
[2018-11-28] MEDS: phenytoin sod ER 100mg capsule PO SCH ×3 (08:29→22:00)
[2018-11-28] MEDS: lisinopril 20mg tablet PO SCH (08:30)
--- NOTE | 2018-11-28 17:41 | NUR ---
Nursing Progress Note : Legal hold: 5250 Client on involuntary status for GD DX: F20.9 - Schizophrenia, unspecified Report received from nurse with use of SBAR: Barnes RN Why are they here: Pt. is an involuntary admission after being brought to the the ER on the evening of 11/13 for Suicide attempt by OD on 12-16 pills of Mirtazapine and Seroquel. Pt. has a history of 4 previous suicide attempts by OD. Assessment What happened during the shift: Patient is observed resting in her room at change of shift. She gets up and joins others for breakfast in the group room. She takes her medication and eats all of her breakfast without any issue. She reports that she continues to have A/H. She says that sometimes they just mumble but will have words over the top of the mumble. She states that she is unsure if they have improved or not. Patient states that she called her son today and they chatted for a moment. 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 Patient states that she awoke at 0245 but was able to get back to sleep. She states that she feels rested. Patient c/o constipation and requests a laxative, had a BM yesterday. RN provided medication education r/t indications of use for MOM. Patient requests prune juice, RN did not provide. Encouraged patient to increase water intake, fruits and vegetables and walk regularly. Patient is observed walking the halls. S/I, H/I: Denies A/VH: She reports AH and frequently talks to herself. Sleep: 6hrs last night ADL's: Independent Group attendance: Yes Were meds taken: Yes Any med S/E: None reported or observed Mental Status Exam Appearance: clean and dressed appropriately Eye contact: Direct Behavior: friendly and cooperative Speech: clear, soft tone, normal rate/rhythm Mood: mood is good Affect: bright Thought process: linear Cognition: A&O X 4 Insight: poor Judgment: poor Interventions PRN's used: None Therapeutic interventions: 1:1 therapeutic assessment, active listening with positive reinforcement, Q 15 min checks. Restraints/seclusion/emergency medication: N/A Justification of Continued Inpatient Treatment: Pt continuing to respond to internal stimuli. Continued therapeutic support and medication adjustment needed to provide stabilization, symptom management & prevent decompensation, decreasing risk to patient and readmittance.
[2018-11-28 19:00] VITALS: BP 127/55
[2018-11-28] MEDS: quetiapine 100mg tablet PO SCH (22:00)
--- NOTE | 2018-11-29 02:07 | NUR ---
Nursing Progress Note: Legal hold: 5250 Client on involuntary status for DTS, GD Report received from nurse with use of SBAR: BILL Salazar Why are they here: Pt. readmitted to [facility] after recently being discharged to [facility]. While there she overdosed on prescribed medications (Quetiapine and Mirtazapine), she alerted staff and was brought to the ER. Pt. reported command A/H which compelled her to attempt the overdose. At this time pt. continues to struggle with ongoing A/H and insomnia. Assessment What has happened this shift: Pt. isolating in her room throughout the shift reading a book in bed. She presents as cooperative and pleasant with no inappropriate laughter exhibited this shift. 1:1 completed, pt. continues to deny S/I and reports that her that her depression and anxiety are better, however she states, "I do get panic attacks. That's why I overdosed the first time. They didn't start until age 48 and they they were gone by age 58." Pt. continues to report ongoing A/H, states, "They are louder, then get mild. I can't understand them, only a fuzz." She admits that these voices were the cause of her second overdose attempt. S/I, H/I: Denies A/VH: Ongoing A/H, states, "They are louder, then get mild. I can't understand them, only a fuzz." Sleep: Pt. reports she has been able to sleep better, however per sleep records she only averages 4-6 hours/night. HS Seroquel administered later at 2200 per new orders, and pt. encouraged again to request PRN Ambien if Seroquel ineffective, she voices understanding. ADL's: Independent, however requires some direction from staff at times Group attendance: Attends all groups Were meds taken: Yes Any med S/E: No Mental Status Exam Appearance: Neatly dressed and groomed with red lipstick Eye contact: Good Behavior: Cooperative and pleasant, psychomotor WNL Speech: Somewhat rapid and hyperverbal at times, however can be redirected Mood: Pleasant Affect: Animated Thought process: Circumstantial, however goal-directed Thought Content: Ongoing A/H and preoccupation with internal stimuli. Cognition: A&O X4 Insight: Fair Judgment: Fair Interventions PRN's used: None Therapeutic interventions: Provided active listening, maintained a safe and therapeutic environment, ensured contract for safety, provided medication education, encouraged independent performance of ADLs, provided a quiet environment to promote sleep, provided clear and simple instructions, reoriented to reality as needed, and maintained Q 15 min safety checks. Restraints/seclusion/emergency medication: N/A Justification of Continued Inpatient Treatment: Pt. continues to require medication adjustments, a therapeutic environment and group participation, and discharge planning.
[2018-11-29 07:24] VITALS: BP 115/41
[2018-11-29 08:00] VITALS: BP 116/69
[2018-11-29] MEDS: phenytoin sod ER 100mg capsule PO SCH ×3 (08:08→21:52)
[2018-11-29] MEDS: QUEtiapine 25mg tablet PO SCH ×2 (08:08→13:46)
[2018-11-29] MEDS: lisinopril 20mg tablet PO SCH (08:09)
--- NOTE | 2018-11-29 11:15 | NUR ---
Nursing Progress Note : Legal hold: 5250 Client on involuntary status for GD Report received from nurse with use of SBAR: Molly RN Why are they here: Pt. is an involuntary admission after being brought to the the ER on the evening of 11/13 for Suicide attempt by OD on 12-16 pills of Mirtazapine and Seroquel. Pt. has a history of 4 previous suicide attempts by OD. Assessment What happened during the shift: Pt bright and alert, showered before breakfast, cooperative with medications, denies depression, anxiety, SI/HI/VH. Pt states the voices are "like a hum," she usually can no longer make out what they are saying, did not observe pt responding to any internal stimuli so far this shift, no talking or laughing to herself noted. S/I, H/I: Pt denies A/VH: Pt denies VH, still having AH but severity seems to be greatly reduced,now describes the voices as "a hum." Sleep: Per noc shift report, pt slept 6.75 hours last night, taking Seroquel at 10 pm seemed to be helpful. ADL's: Independent Group attendance: Yes, attended morning group Were meds taken: Yes Any med S/E: None reported or observed Mental Status Exam Appearance: Neat and clean, showered before breakfast Eye contact: Good Behavior: Pleasant, cooperative, restless Speech: Somewhat pressured/rapid, mumbles Mood: Pt states, feeling better Affect: Bright Thought process: Still having some flight of ideas Cognition: A/O X 4 Insight: poor Judgment: Fair Interventions PRN's used: None Therapeutic interventions: 1:1 assessment, medication administration/monitoring/education, therapeutic conversation, encouragement to come out of room for meals and groups, Q 15 min checks. Restraints/seclusion/emergency medication: N/A Justification of Continued Inpatient Treatment: Pt needs continued medication adjustment/monitoring in a safe and supportive environment, as well as formulation of a safe discharge plan.
[2018-11-29 19:00] VITALS: BP 137/56
[2018-11-29] MEDS: zolpidem 5mg tablet PO PRN (21:52)
[2018-11-29] MEDS: quetiapine 100mg tablet PO SCH (21:52)
--- NOTE | 2018-11-30 00:14 | NUR ---
Nursing Progress Note: Legal hold: 5250 Client on involuntary status for DTS, GD Report received from nurse with use of SBAR: Juan RN Why are they here: Pt. readmitted to [facility] after recently being discharged to [facility]. While there she overdosed on prescribed medications (Quetiapine and Mirtazapine), she alerted staff and was brought to the ER. Pt. reported command A/H which compelled her to attempt the overdose. At this time pt. continues to struggle with ongoing A/H and insomnia. Assessment What has happened this shift: Pt. isolating in her room throughout the shift sitting in bed. She presents as cooperative and pleasant with some anticipation/anxiety regarding discharge tomorrow. 1:1 completed, pt. continues to deny S/I and reports her A/H are just a "Humm," and she is able to ignore them. She reports she will be leaving tomorrow to return to [facility] and her [id number] will be picking her up to take her there. 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 Pt. reported that she had, had an episode of vomiting (stomach acid) earlier, however denies any remaining nausea or stomach upset. She states, "I only ate ice cream and juice for dinner tonight, and I think it caused a lot of acid, but I feel better now." Will endorse to AM shift and continue to monitor. S/I, H/I: Denies A/VH: Ongoing A/H, states, "They are just a Humm." Sleep: Pt. slept 6.75 hours last night, and reports she feels rested and hopes she can sleep more tonight. PRN Ambien administered per request. ADL's: Independent, however requires some direction from staff at times Group attendance: Attends all groups Were meds taken: Yes Any med S/E: No Mental Status Exam Appearance: Neatly dressed and groomed with red lipstick in place Eye contact: Good Behavior: Cooperative and pleasant, psychomotor WNL Speech: Somewhat hyperverbal at times, however can be redirected Mood: Pleasant Affect: Animated Thought process: Circumstantial, however goal-directed Thought Content: Diminished A/H that pt. reports she is able to ignore. Preoccupation with seeking employment. Cognition: A&O X4 Insight: Fair Judgment: Fair Interventions PRN's used: None Therapeutic interventions: Provided active listening, maintained a safe and therapeutic environment, ensured contract for safety, provided medication education, encouraged independent performance of ADLs, provided a quiet environment to promote sleep, provided clear and simple instructions, reoriented to reality as needed, and maintained Q 15 min safety checks. Restraints/seclusion/emergency medication: N/A Justification of Continued Inpatient Treatment: Pt. continues to require a therapeutic environment and group participation. She will discharge tomorrow back to [facility].
[2018-11-30 07:41] VITALS: BP 142/76
[2018-11-30 08:15] VITALS: BP_SYST 142
[2018-11-30] MEDS: lisinopril 20mg tablet PO SCH (08:15)
[2018-11-30] MEDS: QUEtiapine 25mg tablet PO SCH (08:15)
[2018-11-30] MEDS: phenytoin sod ER 100mg capsule PO SCH (08:15)
[2018-11-30] MEDS ORDERED: QUET300T19 PO (08:43)
[2018-11-30] MEDS ORDERED: QUET25TA34 PO ×2 (08:43)
[2018-11-30] MEDS ORDERED: PHEN100C12 PO (08:43)
[2018-11-30] MEDS ORDERED: ZOLP5TAB8 PO (08:43)
[2018-11-30] MEDS ORDERED: LISI-600 PO (08:43)
--- NOTE | 2018-11-30 11:10 | NUR ---
DISCHARGE NOTE/Nursing Progress Note : Legal hold: 5250 Client on involuntary status for GD Report received from nurse with use of SBAR: BILL Barnes Why are they here: Pt. is an involuntary admission after being brought to the the ER on the evening of 11/13 for Suicide attempt by OD on 12-16 pills of Mirtazapine and Seroquel. Pt. has a history of 4 previous suicide attempts by OD. Assessment What happened during the shift: Pt observed responding to internal stimuli this morning, was arguing with the voices with repetitive statements like "I'll take your money, I'll take your money!" over and over again, or "she's a liar, she's a liar." and "I'll be your nelson, I'll be your nelson!" "I'll ivis for five hundred thousand dollars, I'll ivis for five hundred thousand dollars!" Pt aware that she is being discharged today. Notified psychiatrist Dr Farah of increase in voices/symptoms this morning, initially he was considering holding off on the discharge, however, after speaking with the pt determined that she is A/O X 4 and actually looking forward to discharge but was anxious waiting for it to happen. Pt acknowledged that she was hearing the voices but was able to state that she knew they weren't real. A weeks worth of meds were called in to [facility], Dr Farah will follow up on getting her bubble packs/refills. Pt has f/u appointments made with [facility] and with Dr Farah in the community. Pt denied depression/SI/HI/VH. Pt's [id number] picked pt up, all belongings returned, including pt's own meds. Reviewed discharge instructions, prescriptions, and follow up care with pt and family, pt and family expressed understanding. S/I, H/I: Pt denies A/VH: Pt denies VH, still having AH though not command hallucinations Sleep: Slept 6.5 hours per noc shift report ADL's: Independent Group attendance: not today as she was being discharged Were meds taken: Yes Any med S/E: None reported or observed Mental Status Exam Appearance: Neat and clean, showered before breakfast Eye contact: Good Behavior: Cooperative, anxious, responding to internal stimuli Speech: Somewhat pressured/rapid, mumbles Mood: Anxious Affect: Anxious Thought process: some racing thoughts, internally preoccupied at times with the voices Cognition: A/O X 4 Insight: fair to good Judgment: Fair to good Interventions PRN's used: None Therapeutic interventions: 1:1 assessment, medication administration, discharge/follow up eduction, Q 15 min checks. Restraints/seclusion/emergency medication: N/A Justification of Continued Inpatient Treatment: Pt was discharged today at 1110 to [facility], she has appointments set up with Dr Farah and with CRICKET Mendoza at [facility], she has also been referred to case management and the [facility].
== END 2018-11-30 11:10 | disposition home or self-care (01) | DRG 885 ==
LOC: ADULT MH 08:00
PROVIDERS: ADMIT Psychiatry & Neurology Psychiatry; ATTEND Psychiatry & Neurology Psychiatry
DX: F20.9 Schizophrenia, unspecified (principal); G47.00 Insomnia, unspecified; T50.902A Poisoning by unspecified drugs, medicaments and biological substances, intentional self-harm, initial encounter; I10 Essential (primary) hypertension; K21.9 Gastro-esophageal reflux disease without esophagitis; Z79.899 Other long term (current) drug therapy; Z83.3 Family history of diabetes mellitus; Z82.49 Family history of ischemic heart disease and other diseases of the circulatory system; Z82.5 Family history of asthma and other chronic lower respiratory diseases; Z84.89 Family history of other specified conditions; Y92.89 Other specified places as the place of occurrence of the external cause
CPT/HCPCS: 36415; 80185; 83036; 83721; 87070

== ENCOUNTER 2020-08-09 00:09 | Emergency (ER) | payer MEDICARE, MEDICAID ==
[~2020-08-09] VITALS: Ht 167.6 cm; Wt 57.7 kg
[~2020-08-09 00:09] MED LIST changes: -MIRT15TA PO; +PHEN100C12 PO; +QUET25TA34 PO; +QUET300T19 PO; -QUET400T12 PO; -QUET50TA22 PO; -TEMA15CA5 PO; +ZOLP5TAB8 PO
[2020-08-09 00:13] VITALS: BP 170/82
[2020-08-09 01:29] LABS: ALANINE AMINOTRANSFERASE 26 U/L (12-78); ALBUMIN 3.4 G/DL (3.4-5.0); ALBUMIN/GLOBULIN RATIO 0.9 (1.1-1.5); ALKALINE PHOSPHATASE 84 IU/L (46-116); ANION GAP 7 (8-16); ASPARTATE AMINO TRANSFERASE 24 U/L (10-37); BILIRUBIN,TOTAL 0.2 MG/DL (0.1-1.0); BLOOD UREA NITROGEN 24 MG/DL (7-18); BUN/CREATININE RATIO 20.7 (6.6-38.0); CALCIUM 8.8 MG/DL (8.5-10.1); CHLORIDE 105 MMOL/L (99-107); CREATININE 1.16 MG/DL (0.40-0.90); GLUCOSE 94 MG/DL (70-104); MAGNESIUM 2.2 MG/DL (1.5-2.4); POTASSIUM 4.2 MMOL/L (3.5-5.1); SODIUM 140 MMOL/L (135-145); TOTAL CARBON DIOXIDE 27.8 MMOL/L (24-32); TOTAL PROTEIN 7.1 G/DL (6.4-8.2); eGFR 45 ML/MIN
[2020-08-09 01:41] LABS: BASOPHILS # (AUTO) 0.1 X10'3 (0-0.2); BASOPHILS % (AUTO) 1.6 % (0-1); COLOR,URINE YELLOW (Yellow); EOSINOPHILS # (AUTO) 0.1 X10'3 (0-0.9); EOSINOPHILS % (AUTO) 1.5 % (0-6); GLUCOSE, URINE NEGATIVE (Neg); HEMATOCRIT 28.3 % (35.0-45.0); HEMOGLOBIN 9.5 g/dl (12.0-16.0); KETONES,URINE NEGATIVE (Neg); LEUKOCYTE ESTERASE ,URINE MODERATE (Neg); LYMPHOCYTES # (AUTO) 1.3 X10'3 (1.1-4.8); LYMPHOCYTES % (AUTO) 33.6 % (21-51); MEAN CORPUSCULAR HEMOGLOBIN 29.6 PG (27.0-31.0); MEAN CORPUSCULAR HGB CONC 33.6 g/dL (33.0-36.5); MEAN PLATELET VOLUME 7.7 FL (7.4-10.4); MONOCYTES # (AUTO) 0.4 X10'3 (0-0.9); MONOCYTES % (AUTO) 10.6 % (2-12); NEUTROPHILS % (AUTO) 52.7 % (42-75); NITRITES, URINE NEGATIVE (Neg); OCCULT BLOOD,URINE TRACE-INTACT (Neg); PH,URINE 7.5 (4.8-8.0); PLATELET COUNT 236 X10'3 (140-440); PROTEIN,URINE NEGATIVE (Neg); RED BLOOD COUNT 3.21 X10'6 (4.20-5.60); RED CELL DISTRIBUTION WIDTH 14.5 % (11.5-14.5); UROBILINOGEN,URINE 0.2 E.U/dL (0.2-1.0); WHITE BLOOD COUNT 3.8 X10'3 (4.5-11.0)
[2020-08-09 01:49] LABS: UA COLLECTION TYPE STRAIGHT CATH
[2020-08-09 01:50] LABS: CLARITY,URINE SLIGHTLY CLOUDY (Clear)
[2020-08-09 01:51] LABS: BACTERIA,URINE FEW /HPF (Neg); RBC,URINE 0-2 /HPF (0-2); SQUAMOUS EPITHELIAL CELL,UR FEW /LPF (FEW)
[2020-08-09] MEDS ORDERED: CEPH250T PO (01:53)
[2020-08-09] MEDS ORDERED: acetaminophen 325mg tablet PO ONE (01:55)
== END 2020-08-09 02:30 | disposition home or self-care (01) ==
LOC: ER 00:10
DX: N39.0 Urinary tract infection, site not specified (principal); R51.9 Headache, unspecified; I10 Essential (primary) hypertension; K21.9 Gastro-esophageal reflux disease without esophagitis; F20.9 Schizophrenia, unspecified; Z98.890 Other specified postprocedural states; Z72.89 Other problems related to lifestyle; Z79.2 Long term (current) use of antibiotics; Z79.899 Other long term (current) drug therapy
CPT/HCPCS: 36415; 70450; 80053; 81001; 83735; 85025; 87088; 99284

== ENCOUNTER 2021-03-29 12:21 | Emergency (ER) | payer MEDICARE, MEDICAID ==
[~2021-03-29] VITALS: Ht 167.6 cm; Wt 65.0 kg
[~2021-03-29 12:21] MED LIST changes: +AMLO2.5T2 PO; +ASPI81TA52 PO; -LISI-600 PO; +LISI20TA28 PO; +OMEP20CA15 PO; +OMEP20TA5 PO; -PHEN100C12 PO; +QUET-1 PO; -QUET25TA34 PO; -QUET300T19 PO; +TRAZ-251 PO; -ZOLP5TAB8 PO
[2021-03-29 12:53] VITALS: BP 151/70
[2021-03-29 14:59] LABS: BASOPHILS # (AUTO) 0.1 X10'3 (0-0.2); BASOPHILS % (AUTO) 1.1 % (0-1); EOSINOPHILS % (AUTO) 0.7 % (0-6); HEMATOCRIT 27.4 % (35.0-45.0); HEMOGLOBIN 8.7 g/dl (12.0-16.0); LYMPHOCYTES # (AUTO) 0.7 X10'3 (1.1-4.8); LYMPHOCYTES % (AUTO) 14.1 % (21-51); MEAN CORPUSCULAR HEMOGLOBIN 24.9 PG (27.0-31.0); MEAN CORPUSCULAR HGB CONC 31.8 g/dL (33.0-36.5); MEAN CORPUSCULAR VOLUME 78.2 FL (78-98); MEAN PLATELET VOLUME 7.6 FL (7.4-10.4); MONOCYTES # (AUTO) 0.2 X10'3 (0-0.9); MONOCYTES % (AUTO) 4.4 % (2-12); NEUTROPHILS # (AUTO) 4.2 X10'3 (1.8-7.7); NEUTROPHILS % (AUTO) 79.7 % (42-75); PLATELET COUNT 279 X10'3 (140-440); RED CELL DISTRIBUTION WIDTH 17.5 % (11.5-14.5); WHITE BLOOD COUNT 5.3 X10'3 (4.5-11.0)
== END 2021-03-29 15:48 | disposition home or self-care (01) ==
LOC: ER 12:22
DX: D64.9 Anemia, unspecified (principal); R42 Dizziness and giddiness; R10.32 Left lower quadrant pain; I10 Essential (primary) hypertension; K21.9 Gastro-esophageal reflux disease without esophagitis; F20.9 Schizophrenia, unspecified; Z98.890 Other specified postprocedural states; Z72.89 Other problems related to lifestyle; Z79.82 Long term (current) use of aspirin; Z79.899 Other long term (current) drug therapy
CPT/HCPCS: 36415; 85025; 99283

== ENCOUNTER 2022-01-03 00:13 | Emergency (ER) | payer MEDICARE, MEDICAID ==
[~2022-01-03] VITALS: Ht 167.6 cm; Wt 71.8 kg
[~2022-01-03 00:13] MED LIST changes: +OMEP20TA43 PO; -OMEP20TA5 PO
[2022-01-03] MEDS ORDERED: clonazePAM 0.5mg tablet PO SCH (00:55)
[2022-01-03] MEDS ORDERED: clonazePAM 0.5mg tablet PO ONE (00:55)
[2022-01-03 01:32] VITALS: BP 143/53
== END 2022-01-03 01:34 | disposition home or self-care (01) ==
LOC: ER 00:14
DX: F41.9 Anxiety disorder, unspecified (principal); I10 Essential (primary) hypertension; K21.9 Gastro-esophageal reflux disease without esophagitis; F20.9 Schizophrenia, unspecified; Z98.890 Other specified postprocedural states; Z72.89 Other problems related to lifestyle; Z79.82 Long term (current) use of aspirin; Z79.899 Other long term (current) drug therapy
CPT/HCPCS: 93005; 99283

== ENCOUNTER 2023-09-22 21:32 | Emergency (ER) | payer MEDICARE, MEDICAID ==
[~2023-09-22] VITALS: Ht 167.6 cm; Wt 69.3 kg
[2023-09-22 23:27] LABS: HEMOGLOBIN 9.9 g/dl (12.0-16.0); WHITE BLOOD COUNT 4.6 X10'3 (4.5-11.0)
[2023-09-22 23:30] LABS: HEMATOCRIT 29.9 % (35.0-45.0); MEAN CORPUSCULAR HGB CONC 33.2 g/dL (33.0-36.5); MEAN CORPUSCULAR VOLUME 96.1 FL (78-98); MEAN PLATELET VOLUME 7.4 FL (7.4-10.4); PLATELET COUNT 288 X10'3 (140-440); RED BLOOD COUNT 3.11 X10'6 (4.20-5.60); RED CELL DISTRIBUTION WIDTH 14.2 % (11.5-14.5)
[2023-09-22 23:55] LABS: ALANINE AMINOTRANSFERASE 22 U/L (12-78); ALBUMIN 2.5 G/DL (3.4-5.0); ALBUMIN/GLOBULIN RATIO 0.7 (1.1-1.5); ALKALINE PHOSPHATASE 74 IU/L (46-116); ANION GAP 12 (8-16); ASPARTATE AMINO TRANSFERASE 24 U/L (10-37); BILIRUBIN,TOTAL 0.3 MG/DL (0.1-1.0); BLOOD UREA NITROGEN 11 MG/DL (7-18); BUN/CREATININE RATIO 10.5 (10.0-20.0); CALCIUM 8.3 MG/DL (8.5-10.1); CHLORIDE 99 MMOL/L (99-107); CREATININE 1.05 MG/DL (0.40-0.90); GLUCOSE 108 MG/DL (70-104); POTASSIUM 3.9 MMOL/L (3.5-5.1); PRO BRAIN NATRIURETIC PEPTIDE 287 PG/ML (0-450); SODIUM 130 MMOL/L (135-145); TOTAL CARBON DIOXIDE 19.3 MMOL/L (24-32); TOTAL PROTEIN 5.9 G/DL (6.4-8.2); eCRCL 40 ML/MIN; eGFR 50 ML/MIN
[2023-09-23 00:50] VITALS: BP 125/54; PULSE 100; RESP 18; TEMP 97.4; O2SAT 98
[2023-09-23 02:29] LABS: PLATELET ESTIMATE NORMAL; TOTAL CELLS COUNTED 100
[2023-09-23 02:34] LABS: ELLIPTOCYTES FEW
== END 2023-09-23 00:46 | disposition home or self-care (01) ==
LOC: ER 21:32
DX: J06.9 Acute upper respiratory infection, unspecified (principal); Z20.822 Contact with and (suspected) exposure to COVID-19; I10 Essential (primary) hypertension; K21.9 Gastro-esophageal reflux disease without esophagitis; Z79.82 Long term (current) use of aspirin; Z79.899 Other long term (current) drug therapy
CPT/HCPCS: 36415; 71045; 80053; 83605; 83880; 85007; 85025; 87040; 87502; 87503; 87811; 99285